=== PATIENT | male | born 1965 | race Hispanic/Latino ===

== ENCOUNTER 2021-04-04 18:38 | Inpatient (IN) | payer SELFPAY ==
[~2021-04-04 18:38] MED LIST: Heparin 1,000 UNITS/ML VIAL ONE; Succinylcholine 200 MG/10 ml SYRINGE FS ONE
[2021-04-04 19:09] LABS: Bilirubin Negative (Negative); Blood, Urine 1+ (Negative); Clarity Extra Turbid (Clear); Glucose, Urine (Dipstick) Greater than 1000 mg/dL (Negative); Ketone, Urine 60 mg/dL (Negative); Leukocyte 500 Leu/uL (Negative); Nitrite Negative (Negative); Protein, Urine (Dipstick) 100 mg/dL (Neg-Trace); Specific Gravity, Urine 1.022 (1.002-1.036); Squamous Epithelial None Seen HPF (0-3); Urobilinogen Normal mg/dL (Less than 2); WBC/HPF Greater than 50 HPF (0-3); pH, Urine 6.5 (5.0-9.0)
[2021-04-04 19:10] LABS: Bacteria/HPF 1+ HPF (None Seen)
[2021-04-04 19:12] LABS: Hemoglobin 12.5 g/dL (14.0-18.0); Mean Corpuscular HGB CONC 32.3 g/dL (32.0-36.0); Mean Corpuscular Hemoglobin 35.1 pg (27.0-31.0); Mean Platelet Volume 8.7 fL (7.4-10.4); Platelet Count 333 thou/uL (130-400); RBC Distribution Width 14.1 % (11.5-14.5); Red Blood Cell (RBC) Count 3.56 mill/uL (4.70-6.10); White Blood Cell (WBC) Count 11.7 thou/uL (4.8-10.8)
[2021-04-04 19:17] LABS: Amphetamine Not Detected (NotDetected); Barbiturates Screen Not Detected (NotDetected); Benzodiazepine Screen Not Detected (NotDetected); Cocaine Metabolite Screen Detected (NotDetected); Methadone Not Detected (NotDetected); Methamphetamine Not Detected (NotDetected); Opiate Screen Not Detected (NotDetected); Oxycodone Screen Not Detected (NotDetected); Phencyclidine (PCP) Not Detected (NotDetected); THC/Cannabinoid Screen Not Detected (NotDetected); Tricyclic Screen Not Detected (NotDetected)
[2021-04-04 19:24] LABS: Acetaminophen Less than 6.0 mcg/mL (10.0-30.0); Alcohol Less than 10 mg/dL (Less than 10); Salicylate Less than 8.0 mg/dL (15.0-30.0)
[2021-04-04 19:26] LABS: ALT (SGPT) 14 U/L (8-55); AST (SGOT) 15 U/L (5-34); Albumin 3.5 g/dL (3.4-4.8); Alkaline Phosphatase 155 U/L (40-110); BUN (Urea Nitrogen) 65 mg/dL (8.4-25.7); Bilirubin, Total 0.3 mg/dL (0.2-1.2); CK (CPK) 25 U/L (30-200); Calc. Creatinine Clearance 0 mL/min (70-130); Calcium 10.5 mg/dL (7.8-10.44); Chloride 109 mmol/L (98-107); Globulin 4.9 g/dL (2.4-3.5); Lipase 966 U/L (8-78); Potassium 3.1 mmol/L (3.5-5.1); Protein, Total 8.4 g/dL (5.8-8.1); Sodium 148 mmol/L (136-145)
[2021-04-04 19:30] LABS: Carbon Dioxide Less than 8 mmol/L (23-31); Glucose 1120 mg/dL (83-110)
[2021-04-04] MEDS ORDERED: Cefepime 2 GM VIAL ONE (19:39)
[2021-04-04] MEDS ORDERED: INSULIN REGULAR IN 0.9 % NACL 100 UNIT/100 ML BAG ONE (19:39)
[2021-04-04 19:40] LABS: Band 14 % (5-11); Lymphocytes 7 % (21-51); MDiff Complete? YES; Macrocytosis SLIGHT = 6-15 cells (100X) (0-5/hpf); Monocytes 10 % (0-10); Neutrophil 69 % (42-75); Platelet Morphology Comment Appears Adequate; Polychromasia SLIGHT = 2-3 cells (100X) (0-2/hpf)
[2021-04-04] MEDS ORDERED: Lorazepam 2 MG/ML VIAL ONE (19:48)
[2021-04-04 20:00] LABS: SARS-CoV-2 NAA Rapid Test Not Detected (NotDetected)
[2021-04-04] MEDS ORDERED: Potassium Chloride 20 MEQ/100 ML PREMIX BAG ONE ×2 (20:07→23:41)
[2021-04-04] MEDS ORDERED: Sodium Chloride 0.9% 1,000 ML IV PRN ×4 (20:54)
[2021-04-04] MEDS ORDERED: Dextrose 5 %-0.45 % NaCl 1,000 ML IV PRN (20:54)
[2021-04-04] MEDS ORDERED: NS 0.9% w/ 20 MEQ KCL 1,000 ML IV PRN ×2 (20:54)
[2021-04-04] MEDS ORDERED: D5 1/2 NS w/20 mEq KCL 1,000 ML IV PRN (20:54)
[2021-04-04] MEDS ORDERED: Electrolyte Replacement Protocol 1 EACH IVPB ONE (20:54)
[2021-04-04 21:20] LABS: Actual Bicarbonate (HCO3a) 5.5 mEq/L (22-28); Base Excess (BEa) -27.4 mEq/L (-2.0 to +3.0); CO2 Tension 33.7 mmHg (35.0-45.0); O2 Tension (PaO2), arterial 345.5 mmHg (> 70.0); pH, Arterial 6.83 (7.35-7.45)
[2021-04-04 21:21] LABS: ALV-art Gradient 325.375 mmHg (0-20); Analyzer IN Cardio ER; Calcium, Ionized (arterial) 1.24 mmol/L (1.12-1.30); Carboxyhemoglobin (COHb) 0.1 gm% (0.0-3.0); Hemoglobin (Hb) 9.8 g/dL (14.0-18.0); Potassium - ABG Lab 2.91 mmol/L (3.70-5.30); Puncture Site RRA
[2021-04-04] MEDS ORDERED: Norepinephrine 8 MG/0.9% NS 250 ML ONE (21:36)
[2021-04-04 21:49] LABS: BUN (Urea Nitrogen) 52 mg/dL (8.4-25.7); Calc. Creatinine Clearance 0 mL/min (70-130); Calcium 7.7 mg/dL (7.8-10.44); Carbon Dioxide Less than 8 mmol/L (23-31); Chloride 124 mmol/L (98-107); Sodium 151 mmol/L (136-145)
[2021-04-04 21:50] LABS: Lactic Acid 1.1 mmol/L (0.5-2.2)
[2021-04-04 22:00] LABS: Glucose 756 mg/dL (83-110)
[2021-04-04] MEDS ORDERED: Potassium Chloride 20 MEQ in Premix Bag 1 BAG IVPB SCH (22:00)
[2021-04-04] MEDS ORDERED: Sodium Bicarb 50 MEQ/50 ML Abboject 8.4% SYRINGE IVP SCH (22:15)
[2021-04-04] MEDS ORDERED: Sodium Bicarbonate 150 MEQ in Dextrose 5% in Water 1,000 ML IV SCH (22:30)
[2021-04-04] MEDS ORDERED: Sodium Bicarb 50 MEQ/50 ML Abboject 8.4% SYRINGE ONE (23:15)
[2021-04-04] MEDS ORDERED: metroNIDAZOLE 500 MG/100 ML BAG ONE (23:16)
[2021-04-04] MEDS: metroNIDAZOLE 500 MG in Premix Bag 1 BAG IVPB SCH (23:33)
[2021-04-04] MEDS: Potassium Chloride 20 MEQ in Premix Bag 1 BAG IVPB SCH (23:33)
[2021-04-05] MEDS ORDERED: VANCOMYCIN 1.25 GM/250 ML BAG 1.25 GM in Premix Bag 1 BAG IVPB SCH (00:30)
[2021-04-05] MEDS: Potassium Chloride 20 MEQ in Premix Bag 1 BAG IVPB SCH (01:15)
[2021-04-05 01:39] LABS: Magnesium 1.9 mg/dL (1.6-2.6)
[2021-04-05 01:46] LABS: BUN (Urea Nitrogen) 49 mg/dL (8.4-25.7); Calc. Creatinine Clearance 21 mL/min (70-130); Calcium 7.7 mg/dL (7.8-10.44); Chloride 125 mmol/L (98-107); Potassium 3.4 mmol/L (3.5-5.1); Sodium 155 mmol/L (136-145)
[2021-04-05 01:50] LABS: Carbon Dioxide Less than 8 mmol/L (23-31); Glucose 751 mg/dL (83-110)
[2021-04-05 01:51] LABS: Phosphorus 1.7 mg/dL (2.3-4.7)
[2021-04-05] MEDS: HUMULIN R 100 UNITS in Sodium Chloride 0.9% 100 ML IVPB SCH ×2 (02:46→13:17)
[2021-04-05] MEDS ORDERED: Fentanyl 100 MCG/2 ML VIAL ONE (02:49)
[2021-04-05] MEDS ORDERED: Lorazepam 2 MG/ML VIAL ONE (03:03)
[2021-04-05] MEDS: Lorazepam 2 MG/ML VIAL SLOW IVP PRN (03:05)
[2021-04-05] MEDS ORDERED: Morphine 2 MG/ML VIAL SLOW IVP PRN (03:15)
[2021-04-05] MEDS ORDERED: Fentanyl BOLUS 250 ML IVPB PRN (03:15)
[2021-04-05] MEDS ORDERED: Propofol BOLUS 1,000 MG/100 ML VIAL IV PRN (03:15)
[2021-04-05] MEDS ORDERED: DISCONTINUE PREVIOUS NARCOTIC PAIN MEDICATIONS AND BENZODIAZEPINES FS SCH (03:15)
[2021-04-05] MEDS ORDERED: NS 0.9% w/ 20 MEQ KCL 0 ML ONE (03:27)
[2021-04-05] MEDS: Fentanyl CADD 100 ML IV SCH ×2 (03:55→22:30)
[2021-04-05 03:58] LABS: CO2 Tension 20.4 mmHg (35.0-45.0); pH, Arterial 7.29 (7.35-7.45)
[2021-04-05 03:59] LABS: Actual Bicarbonate (HCO3a) 9.8 mEq/L (22-28); Base Excess (BEa) -14.8 mEq/L (-2.0 to +3.0); Hemoglobin (Hb) 10.7 g/dL (14.0-18.0); O2 Tension (PaO2), arterial 124.6 mmHg (> 70.0)
[2021-04-05 04:00] LABS: Carboxyhemoglobin (COHb) 0.1 gm% (0.0-3.0); Potassium - ABG Lab 2.55 mmol/L (3.70-5.30)
[2021-04-05 04:01] LABS: Analyzer IN Cardio ER; Calcium, Ionized (arterial) 1.21 mmol/L (1.12-1.30); Puncture Site RRA
[2021-04-05] MEDS: Sodium Chloride 0.45% 1,000 ML IV SCH ×2 (04:29→08:01)
[2021-04-05] MEDS ORDERED: Potassium Chloride 20 MEQ TAB PO SCH ×2 (04:30→08:00)
[2021-04-05] MEDS ORDERED: Potassium Chloride 20 MEQ/100 ML PREMIX BAG ONE ×2 (04:32→04:33)
[2021-04-05] MEDS ORDERED: Potassium Chloride 20 MEQ TAB ONE ×3 (04:32→04:42)
[2021-04-05 05:06] LABS: Anion Gap 23 mmol/L (10-20); BUN (Urea Nitrogen) 45 mg/dL (8.4-25.7); Calc. Creatinine Clearance 21 mL/min (70-130); Calcium 7.8 mg/dL (7.8-10.44); Carbon Dioxide 10 mmol/L (23-31); Chloride 125 mmol/L (98-107); Glucose 730 mg/dL (83-110); Magnesium 1.9 mg/dL (1.6-2.6); Phosphorus 1.1 mg/dL (2.3-4.7); Potassium 2.7 mmol/L (3.5-5.1); Sodium 155 mmol/L (136-145)
[2021-04-05] MEDS ORDERED: levETIRAcetam in NS 100 ML ONE (05:07)
[2021-04-05] MEDS: levETIRAcetam in NS 1,000 MG in Premix Bag 1 BAG IVPB SCH ×3 (05:14→17:45)
[2021-04-05] MEDS ORDERED: metroNIDAZOLE 500 MG in Premix Bag 1 BAG IVPB SCH (06:00)
[2021-04-05] MEDS ORDERED: Potassium Chloride 40 MEQ in Sodium Chloride 0.9% 250 ML 250 ML IVPB SCH (06:00)
[2021-04-05] MEDS ORDERED: Potassium Phosphate 30 MMOL in Sodium Chloride 0.9% 250 ML 250 ML IVPB SCH ×2 (06:30→14:30)
[2021-04-05 06:38] LABS: Anion Gap 22 mmol/L (10-20); BUN (Urea Nitrogen) 44 mg/dL (8.4-25.7); Calc. Creatinine Clearance 23 mL/min (70-130); Calcium 7.7 mg/dL (7.8-10.44); Carbon Dioxide 10 mmol/L (23-31); Sodium 157 mmol/L (136-145)
[2021-04-05 06:48] LABS: Chloride 128 mmol/L (98-107); Glucose 650 mg/dL (83-110)
[2021-04-05] MEDS: metroNIDAZOLE 500 MG in Premix Bag 1 BAG IVPB SCH ×3 (08:34→23:09)
[2021-04-05] MEDS: Enoxaparin Sodium 30 MG/0.3 ML SYRINGE SC SCH (09:00)
[2021-04-05 10:05] LABS: Anion Gap 16 mmol/L (10-20); BUN (Urea Nitrogen) 39 mg/dL (8.4-25.7); Calc. Creatinine Clearance 26 mL/min (70-130); Carbon Dioxide 15 mmol/L (23-31); Potassium 3.7 mmol/L (3.5-5.1); Sodium 154 mmol/L (136-145)
[2021-04-05 10:06] LABS: Calcium 7.6 mg/dL (7.8-10.44); Glucose 501 mg/dL (83-110)
[2021-04-05 10:20] LABS: Chloride 127 mmol/L (98-107)
[2021-04-05 11:31] LABS: Albumin 2.3 g/dL (3.4-4.8); Anion Gap 14 mmol/L (10-20); BUN (Urea Nitrogen) 36 mg/dL (8.4-25.7); BUN/Creatinine Ratio 16.74; Calc. Creatinine Clearance 26 mL/min (70-130); Calcium 7.8 mg/dL (7.8-10.44); Carbon Dioxide 16 mmol/L (23-31); Chloride 128 mmol/L (98-107); Glucose 461 mg/dL (83-110); Phosphorus Less than 1.0 mg/dL (2.3-4.7); Potassium 3.7 mmol/L (3.5-5.1); Sodium 154 mmol/L (136-145)
[2021-04-05] MEDS: Sodium Bicarbonate 50 MEQ in Dextrose 5% in Water 1,000 ML IV SCH ×3 (13:12→22:30)
[2021-04-05 13:22] LABS: Actual Bicarbonate (HCO3a) 14.1 mEq/L (22-28); Base Excess (BEa) -7.9 mEq/L (-2.0 to +3.0); Calcium, Ionized (arterial) 1.11 mmol/L (1.12-1.30); Carboxyhemoglobin (COHb) 0.3 gm% (0.0-3.0); O2 Tension (PaO2), arterial 110.7 mmHg (> 70.0); Potassium - ABG Lab 4.22 mmol/L (3.70-5.30); pH, Arterial 7.42 (7.35-7.45)
[2021-04-05 13:23] LABS: CO2 Tension 22.1 mmHg (35.0-45.0)
[2021-04-05 13:24] LABS: Puncture Site RBA
[2021-04-05 13:25] LABS: ALV-art Gradient -102.675 mmHg (0-20)
[2021-04-05] MEDS ORDERED: Pantoprazole 40 MG VIAL IVP SCH (13:30)
[2021-04-05] MEDS ORDERED: Sodium Chloride 0.9% (PF) 10 ML VIAL FS PRN (13:30)
[2021-04-05 16:28] LABS: Albumin 2.3 g/dL (3.4-4.8); Anion Gap 13 mmol/L (10-20); BUN (Urea Nitrogen) 32 mg/dL (8.4-25.7); BUN/Creatinine Ratio 19.16; Calc. Creatinine Clearance 34 mL/min (70-130); Calcium 7.6 mg/dL (7.8-10.44); Carbon Dioxide 19 mmol/L (23-31); Chloride 128 mmol/L (98-107); Glucose 374 mg/dL (83-110); Phosphorus 2.1 mg/dL (2.3-4.7); Sodium 156 mmol/L (136-145)
[2021-04-05] MEDS: Albumin 25% 25 GM/100 ML BOT IVPB SCH ×2 (17:04→18:22)
[2021-04-05 19:40] LABS: Anion Gap 13 mmol/L (10-20); BUN (Urea Nitrogen) 28 mg/dL (8.4-25.7); BUN/Creatinine Ratio 17.18; Calc. Creatinine Clearance 35 mL/min (70-130); Calcium 7.7 mg/dL (7.8-10.44); Carbon Dioxide 20 mmol/L (23-31); Glucose 288 mg/dL (83-110); Sodium 156 mmol/L (136-145)
[2021-04-05 19:59] LABS: Chloride 127 mmol/L (98-107); Phosphorus 1.9 mg/dL (2.3-4.7)
[2021-04-05] MEDS ORDERED: Fentanyl CADD 100 ML ONE (21:18)
[2021-04-05] MEDS: Acetaminophen 650 MG/20.3 ML UDCUP PO PRN (21:47)
[2021-04-05 23:13] LABS: Albumin 2.8 g/dL (3.4-4.8); Anion Gap 15 mmol/L (10-20); BUN (Urea Nitrogen) 23 mg/dL (8.4-25.7); BUN/Creatinine Ratio 16.43; Calc. Creatinine Clearance 41 mL/min (70-130); Calcium 7.3 mg/dL (7.8-10.44); Carbon Dioxide 21 mmol/L (23-31); Chloride 122 mmol/L (98-107); Glucose 314 mg/dL (83-110); Phosphorus 2.4 mg/dL (2.3-4.7); Potassium 3.8 mmol/L (3.5-5.1); Sodium 154 mmol/L (136-145)
[2021-04-05 23:14] LABS: Vancomycin, Random 10.8 ug/mL (See Comment)
[2021-04-05] MEDS: Vancomycin 1 GM in Premix Bag 1 BAG IVPB SCH (23:47)
[2021-04-05] MEDS ORDERED: Vancomycin HCl 1 GM in Sodium Chloride 0.9% 250 ML 0 ML IVPB SCH (23:59)
[2021-04-06] MEDS: Sodium Bicarbonate 50 MEQ in Dextrose 5% in Water 1,000 ML IV SCH ×2 (02:54→07:01)
[2021-04-06] MEDS: HUMULIN R 100 UNITS in Sodium Chloride 0.9% 100 ML IVPB SCH ×2 (02:54→17:54)
[2021-04-06] MEDS: Norepinephrine 8 MG/0.9% NS 250 ML IVPB SCH ×2 (02:55→17:53)
[2021-04-06] MEDS: levETIRAcetam in NS 1,000 MG in Premix Bag 1 BAG IVPB SCH ×3 (03:02→17:13)
[2021-04-06] MEDS: Cefepime 1 GM in Sodium Chloride 0.9% 100 ML IVPB SCH ×2 (03:30→14:58)
[2021-04-06 03:35] LABS: Hemoglobin 9.4 g/dL (14.0-18.0); Mean Corpuscular HGB CONC 34.2 g/dL (32.0-36.0); Mean Corpuscular Hemoglobin 33.3 pg (27.0-31.0); Mean Corpuscular Volume 97.4 fL (78.0-98.0); Mean Platelet Volume 7.4 fL (7.4-10.4); Platelet Count 211 thou/uL (130-400); Red Blood Cell (RBC) Count 2.82 mill/uL (4.70-6.10); White Blood Cell (WBC) Count 9.1 thou/uL (4.8-10.8)
[2021-04-06 03:49] LABS: Band 27 % (5-11); Hypochromia SLIGHT = 6-15 cells (100X) (0-5/hpf); Lymphocytes 8 % (21-51); MDiff Complete? YES; Monocytes 14 % (0-10); Neutrophil 51 % (42-75); Platelet Morphology Comment Appears Adequate
[2021-04-06 03:51] LABS: Anion Gap 15 mmol/L (10-20); BUN (Urea Nitrogen) 18 mg/dL (8.4-25.7); Calc. Creatinine Clearance 54 mL/min (70-130); Carbon Dioxide 22 mmol/L (23-31); Chloride 120 mmol/L (98-107); Glucose 302 mg/dL (83-110); Potassium 3.2 mmol/L (3.5-5.1); Sodium 154 mmol/L (136-145)
[2021-04-06] MEDS ORDERED: Potassium Phosphate 30 MMOL in Sodium Chloride 0.9% 250 ML 250 ML IVPB SCH (06:45)
[2021-04-06 07:40] LABS: Actual Bicarbonate (HCO3a) 22.1 mEq/L (22-28); Base Excess (BEa) -1.2 mEq/L (-2.0 to +3.0); CO2 Tension 32.2 mmHg (35.0-45.0); Calcium, Ionized (arterial) 0.97 mmol/L (1.12-1.30); Carboxyhemoglobin (COHb) 0.2 gm% (0.0-3.0); Hemoglobin (Hb) 11.5 g/dL (14.0-18.0); O2 Tension (PaO2), arterial 84.9 mmHg (> 70.0); Potassium - ABG Lab 3.34 mmol/L (3.70-5.30); pH, Arterial 7.45 (7.35-7.45)
[2021-04-06 07:48] LABS: Puncture Site RRA
[2021-04-06] MEDS: metroNIDAZOLE 500 MG in Premix Bag 1 BAG IVPB SCH ×2 (08:42→16:58)
[2021-04-06] MEDS: Enoxaparin Sodium 30 MG/0.3 ML SYRINGE SC SCH (08:43)
[2021-04-06] MEDS: Pantoprazole 40 MG VIAL IVP SCH (08:43)
[2021-04-06] MEDS: Dextrose 5% in Water 1,000 ML IV SCH ×2 (09:00→21:38)
[2021-04-06 11:16] LABS: Phosphorus 2.1 mg/dL (2.3-4.7)
[2021-04-06 11:18] LABS: Magnesium 1.2 mg/dL (1.6-2.6)
[2021-04-06] MEDS: Acetaminophen 650 MG/20.3 ML UDCUP PO PRN ×2 (12:25→21:38)
[2021-04-06 13:05] LABS: Albumin 2.6 g/dL (3.4-4.8); Anion Gap 13 mmol/L (10-20); BUN (Urea Nitrogen) 12 mg/dL (8.4-25.7); BUN/Creatinine Ratio 14.12; Calc. Creatinine Clearance 70 mL/min (70-130); Carbon Dioxide 27 mmol/L (23-31); Chloride 115 mmol/L (98-107); Glucose 252 mg/dL (83-110); Phosphorus 3.3 mg/dL (2.3-4.7); Potassium 3.4 mmol/L (3.5-5.1); Sodium 152 mmol/L (136-145)
[2021-04-06] MEDS ORDERED: Fentanyl CADD 100 ML ONE (19:48)
[2021-04-06] MEDS: Fentanyl CADD 100 ML IV SCH (19:57)
[2021-04-06 21:30] LABS: Albumin 2.7 g/dL (3.4-4.8); Anion Gap 13 mmol/L (10-20); BUN (Urea Nitrogen) 10 mg/dL (8.4-25.7); BUN/Creatinine Ratio 13.16; Calc. Creatinine Clearance 78 mL/min (70-130); Calcium 6.9 mg/dL (7.8-10.44); Carbon Dioxide 27 mmol/L (23-31); Chloride 110 mmol/L (98-107); Glucose 238 mg/dL (83-110); Phosphorus 3.1 mg/dL (2.3-4.7); Potassium 3.5 mmol/L (3.5-5.1); Sodium 146 mmol/L (136-145)
[2021-04-06] MEDS: Propofol 1,000 MG/100 ML VIAL IV PRN (21:39)
[2021-04-06] MEDS: Vancomycin 1 GM in Premix Bag 1 BAG IVPB SCH (23:40)
[2021-04-07] MEDS: Cefepime 1 GM in Sodium Chloride 0.9% 100 ML IVPB SCH ×2 (03:55→14:32)
[2021-04-07] MEDS: levETIRAcetam in NS 1,000 MG in Premix Bag 1 BAG IVPB SCH ×2 (05:10→16:41)
[2021-04-07 05:11] LABS: Anion Gap 14 mmol/L (10-20); BUN (Urea Nitrogen) 10 mg/dL (8.4-25.7); Calc. Creatinine Clearance 79 mL/min (70-130); Calcium 6.2 mg/dL (7.8-10.44); Carbon Dioxide 26 mmol/L (23-31); Chloride 111 mmol/L (98-107); Glucose 155 mg/dL (83-110); Sodium 148 mmol/L (136-145)
[2021-04-07 05:12] LABS: Albumin 2.5 g/dL (3.4-4.8); Phosphorus 2.7 mg/dL (2.3-4.7)
[2021-04-07 05:21] LABS: Magnesium 0.9 mg/dL (1.6-2.6); Potassium 2.9 mmol/L (3.5-5.1)
[2021-04-07 05:24] LABS: Band 14 % (5-11); Eosinophils 1 % (0-10); Hemoglobin 10.5 g/dL (14.0-18.0); Lymphocytes 17 % (21-51); MDiff Complete? YES; Macrocytosis SLIGHT = 6-15 cells (100X) (0-5/hpf); Mean Corpuscular HGB CONC 33.9 g/dL (32.0-36.0); Mean Corpuscular Hemoglobin 33.9 pg (27.0-31.0); Mean Platelet Volume 7.2 fL (7.4-10.4); Monocytes 2 % (0-10); Neutrophil 66 % (42-75); Platelet Count 151 thou/uL (130-400); Platelet Morphology Comment Appears Adequate; RBC Distribution Width 14.4 % (11.5-14.5); White Blood Cell (WBC) Count 9.3 thou/uL (4.8-10.8)
[2021-04-07] MEDS ORDERED: Electrolyte Replacement Protocol 1 EACH FS SCH (05:30)
[2021-04-07] MEDS: Potassium Chloride 40 MEQ in Sodium Chloride 0.9% 250 ML 250 ML IVPB SCH ×2 (05:54→10:00)
[2021-04-07] MEDS ORDERED: Magnesium Sulfate 4 GM in Sodium Chloride 0.9% 250 ML 250 ML IVPB SCH (06:00)
[2021-04-07] MEDS ORDERED: Calcium Gluconate 9.2 MEQ in Sodium Chloride 0.9% 250 ML 200 ML IVPB SCH (06:09)
[2021-04-07] MEDS ORDERED: Potassium Phosphate 30 MMOL in Sodium Chloride 0.9% 250 ML 250 ML IVPB SCH (06:15)
[2021-04-07] MEDS: Dextrose 5% in Water 1,000 ML IV SCH (07:11)
[2021-04-07 07:47] LABS: Actual Bicarbonate (HCO3a) 25.8 mEq/L (22-28); Base Excess (BEa) 0.1 mEq/L (-2.0 to +3.0); CO2 Tension 46.8 mmHg (35.0-45.0); Calcium, Ionized (arterial) 0.93 mmol/L (1.12-1.30); Carboxyhemoglobin (COHb) 0.3 gm% (0.0-3.0); Hemoglobin (Hb) 10.1 g/dL (14.0-18.0); Potassium - ABG Lab 3.13 mmol/L (3.70-5.30); pH, Arterial 7.36 (7.35-7.45)
[2021-04-07 07:57] LABS: O2 Tension (PaO2), arterial 59.3 mmHg (> 70.0); Puncture Site LRA
[2021-04-07] MEDS ORDERED: Fentanyl CADD 100 ML ONE ×2 (08:44→21:22)
[2021-04-07] MEDS: Fentanyl CADD 100 ML IV SCH ×2 (08:46→21:32)
[2021-04-07] MEDS: Enoxaparin Sodium 30 MG/0.3 ML SYRINGE SC SCH (09:52)
[2021-04-07] MEDS: Pantoprazole 40 MG VIAL IVP SCH (10:00)
[2021-04-07] MEDS ORDERED: Dextrose 5% in Water 1,000 ML IV PRN (12:26)
[2021-04-07] MEDS ORDERED: Dextrose 50% Abboject 50 ML SYRINGE SLOW IVP PRN (12:26)
[2021-04-07] MEDS: Insulin Regular 300 UNITS/3 ML VIAL SC PRN ×3 (12:49→20:25)
[2021-04-07] MEDS: Acetaminophen 650 MG/20.3 ML UDCUP PO PRN (13:03)
[2021-04-07] MEDS: Norepinephrine 8 MG/0.9% NS 250 ML IVPB SCH (14:01)
[2021-04-07 16:30] LABS: Albumin 2.2 g/dL (3.4-4.8); Anion Gap 13 mmol/L (10-20); BUN (Urea Nitrogen) 7 mg/dL (8.4-25.7); BUN/Creatinine Ratio 9.59; Calc. Creatinine Clearance 75 mL/min (70-130); Calcium 6.9 mg/dL (7.8-10.44); Carbon Dioxide 26 mmol/L (23-31); Chloride 115 mmol/L (98-107); Glucose 275 mg/dL (83-110); Phosphorus 4.1 mg/dL (2.3-4.7); Potassium 4.5 mmol/L (3.5-5.1); Sodium 149 mmol/L (136-145)
[2021-04-07 17:12] LABS: Magnesium 1.7 mg/dL (1.6-2.6)
[2021-04-07] MEDS ORDERED: Magnesium 2 GM/50 ML 2 GM in Premix Bag 1 BAG IVPB SCH (22:00)
[2021-04-07 22:39] LABS: Albumin 2.1 g/dL (3.4-4.8); Anion Gap 11 mmol/L (10-20); BUN (Urea Nitrogen) 6 mg/dL (8.4-25.7); BUN/Creatinine Ratio 8.57; Calc. Creatinine Clearance 78 mL/min (70-130); Calcium 6.9 mg/dL (7.8-10.44); Carbon Dioxide 27 mmol/L (23-31); Chloride 114 mmol/L (98-107); Glucose 225 mg/dL (83-110); Phosphorus 2.7 mg/dL (2.3-4.7); Potassium 3.7 mmol/L (3.5-5.1); Sodium 148 mmol/L (136-145)
[2021-04-07 22:55] LABS: Vancomycin, Trough 8.2 ug/mL
[2021-04-08] MEDS ORDERED: Lorazepam 1 MG TAB PO PRN
[2021-04-08] MEDS: Vancomycin 1 GM in Premix Bag 1 BAG IVPB SCH (00:22)
[2021-04-08] MEDS: Acetaminophen 650 MG/20.3 ML UDCUP PO PRN ×2 (00:23→06:30)
[2021-04-08] MEDS: Insulin Regular 300 UNITS/3 ML VIAL SC PRN ×6 (00:26→20:39)
[2021-04-08] MEDS: Propofol 1,000 MG/100 ML VIAL IV PRN (03:25)
[2021-04-08 04:24] LABS: Magnesium 1.9 mg/dL (1.6-2.6); Phosphorus 2.2 mg/dL (2.3-4.7)
[2021-04-08] MEDS: levETIRAcetam in NS 1,000 MG in Premix Bag 1 BAG IVPB SCH ×2 (04:27→16:24)
[2021-04-08] MEDS: Cefepime 1 GM in Sodium Chloride 0.9% 100 ML IVPB SCH (04:27)
[2021-04-08 04:30] LABS: ALT (SGPT) 13 U/L (8-55); AST (SGOT) 22 U/L (5-34); Albumin 1.9 g/dL (3.4-4.8); Alkaline Phosphatase 108 U/L (40-110); Anion Gap 12 mmol/L (10-20); BUN (Urea Nitrogen) 5 mg/dL (8.4-25.7); Bilirubin, Total 0.8 mg/dL (0.2-1.2); Calc. Creatinine Clearance 79 mL/min (70-130); Calcium 6.4 mg/dL (7.8-10.44); Carbon Dioxide 25 mmol/L (23-31); Chloride 111 mmol/L (98-107); Globulin 2.7 g/dL (2.4-3.5); Glucose 249 mg/dL (83-110); Lipase 49 U/L (8-78); Potassium 3.6 mmol/L (3.5-5.1); Protein, Total 4.6 g/dL (5.8-8.1); Sodium 144 mmol/L (136-145)
[2021-04-08 04:36] LABS: Band 9 % (5-11); Eosinophils 1 % (0-10); Hypochromia SLIGHT = 6-15 cells (100X) (0-5/hpf); Lymphocytes 19 % (21-51); MDiff Complete? YES; Mean Corpuscular HGB CONC 34.4 g/dL (32.0-36.0); Mean Corpuscular Hemoglobin 34.3 pg (27.0-31.0); Mean Corpuscular Volume 99.8 fL (78.0-98.0); Mean Platelet Volume 8.3 fL (7.4-10.4); Monocytes 15 % (0-10); Neutrophil 56 % (42-75); Platelet Count 84 thou/uL (130-400); Platelet Morphology Comment Appears Decreased; RBC Distribution Width 14.3 % (11.5-14.5); Red Blood Cell (RBC) Count 2.63 mill/uL (4.70-6.10); White Blood Cell (WBC) Count 5.5 thou/uL (4.8-10.8)
[2021-04-08] MEDS: Albumin 25% 25 GM/100 ML BOT IVPB SCH ×3 (06:30→18:12)
[2021-04-08] MEDS ORDERED: Magnesium 2 GM/50 ML 2 GM in Premix Bag 1 BAG IVPB SCH (06:30)
[2021-04-08 07:34] LABS: Actual Bicarbonate (HCO3a) 25.7 mEq/L (22-28); Base Excess (BEa) 1.2 mEq/L (-2.0 to +3.0); Calcium, Ionized (arterial) 0.94 mmol/L (1.12-1.30); Carboxyhemoglobin (COHb) 0.3 gm% (0.0-3.0); Hemoglobin (Hb) 9.9 g/dL (14.0-18.0); O2 Tension (PaO2), arterial 95.7 mmHg (> 70.0); pH, Arterial 7.43 (7.35-7.45)
[2021-04-08 08:23] LABS: Puncture Site RBA
[2021-04-08] MEDS: Enoxaparin Sodium 30 MG/0.3 ML SYRINGE SC SCH (09:25)
[2021-04-08] MEDS: Pantoprazole 40 MG VIAL IVP SCH (09:26)
[2021-04-08] MEDS ORDERED: Calcium Gluc 4.6 MEQ/10 ML (100 MG/ML) SLOW IVP ONE (10:30)
[2021-04-08] MEDS ORDERED: Calcium Gluconate 4.6 MEQ in Sodium Chloride 0.9% 100 ML IVPB SCH (10:45)
[2021-04-08] MEDS: Vancomycin HCl 750 MG in Sodium Chloride 0.9% 250 ML 250 ML IVPB SCH (11:17)
[2021-04-08] MEDS ORDERED: Fentanyl CADD 100 ML ONE (11:44)
[2021-04-08] MEDS: Fentanyl CADD 100 ML IV SCH (11:50)
[2021-04-08 13:23] LABS: #Eosinphils 0.1 thou/uL (0.0-0.7); #Lymphocytes 0.5 thou/uL (1.20-3.40); #Monocytes 0.4 thou/uL (0.11-0.59); #Neutrophils 2.9 thou/uL (1.40-6.50); %Basophils 0.2 % (0.0-1.0); %Eosinophils 2.4 % (0.0-10.0); %Lymphocytes 12.6 % (21.0-51.0); %Monocytes 10.3 % (0.0-10.0); %Neutrophils 74.5 % (42.0-75.0); Mean Corpuscular HGB CONC 34.4 g/dL (32.0-36.0); Mean Corpuscular Hemoglobin 34.2 pg (27.0-31.0); Mean Corpuscular Volume 99.3 fL (78.0-98.0); Mean Platelet Volume 8.7 fL (7.4-10.4); Platelet Count 71 thou/uL (130-400); RBC Distribution Width 14.1 % (11.5-14.5); Red Blood Cell (RBC) Count 2.35 mill/uL (4.70-6.10); White Blood Cell (WBC) Count 3.8 thou/uL (4.8-10.8)
[2021-04-08] MEDS ORDERED: Electrolyte Replacement Protocol 1 EACH FS PRN (14:15)
[2021-04-08] MEDS ORDERED: Lorazepam 2 MG/ML VIAL IM PRN (14:15)
[2021-04-08] MEDS ORDERED: Ondansetron ODT 4 MG TAB PO PRN (14:15)
[2021-04-08] MEDS ORDERED: Morphine 4 MG/ML VIAL SLOW IVP PRN (14:30)
[2021-04-08] MEDS: Lorazepam 1 MG TAB PO SCH ×2 (14:38→18:11)
[2021-04-08] MEDS: Thiamine HCl 200 MG/2 ML VIAL SLOW IVP SCH (16:17)
[2021-04-08] MEDS: Lantus 1000 UNITS/10 ML VIAL SC SCH (20:39)
[2021-04-08] MEDS: Lorazepam 2 MG/ML VIAL SLOW IVP PRN (20:40)
[2021-04-09] MEDS: Vancomycin HCl 750 MG in Sodium Chloride 0.9% 250 ML 250 ML IVPB SCH ×2 (00:10→11:38)
[2021-04-09] MEDS: Lorazepam 1 MG TAB PO SCH ×5 (00:11→22:47)
[2021-04-09] MEDS: Albumin 25% 25 GM/100 ML BOT IVPB SCH ×2 (00:11→05:10)
[2021-04-09] MEDS: Insulin Regular 300 UNITS/3 ML VIAL SC PRN ×4 (00:14→19:17)
[2021-04-09 03:58] LABS: Fibrinogen 534 mg/dL (253-463); INR-International Normal Ratio 1.5; Prothrombin Time 18.3 sec (12.0-14.7)
[2021-04-09 03:59] LABS: PTT 50.9 sec (22.9-36.1)
[2021-04-09 04:01] LABS: D-Dimer Test 0.99 *mcg/mL (0.27-0.43)
[2021-04-09 04:02] LABS: FSP-Qualitative Normal (Normal)
[2021-04-09 04:20] LABS: Potassium 2.8 mmol/L (3.5-5.1)
[2021-04-09 04:22] LABS: ALT (SGPT) 9 U/L (8-55); AST (SGOT) 17 U/L (5-34); Albumin 2.9 g/dL (3.4-4.8); Alkaline Phosphatase 112 U/L (40-110); Anion Gap 10 mmol/L (10-20); BUN (Urea Nitrogen) Less than 4 mg/dL (8.4-25.7); Bilirubin, Total 1.6 mg/dL (0.2-1.2); Calc. Creatinine Clearance 98 mL/min (70-130); Calcium 6.9 mg/dL (7.8-10.44); Carbon Dioxide 26 mmol/L (23-31); Chloride 109 mmol/L (98-107); Globulin 2.2 g/dL (2.4-3.5); Glucose 181 mg/dL (83-110); Magnesium 1.7 mg/dL (1.6-2.6); Phosphorus 1.5 mg/dL (2.3-4.7); Protein, Total 5.1 g/dL (5.8-8.1); Sodium 142 mmol/L (136-145)
[2021-04-09 04:24] LABS: Hemoglobin 8.6 g/dL (14.0-18.0); Mean Corpuscular HGB CONC 34.6 g/dL (32.0-36.0); Mean Corpuscular Hemoglobin 34.4 pg (27.0-31.0); Mean Corpuscular Volume 99.4 fL (78.0-98.0); Platelet Count 54 thou/uL (130-400); RBC Distribution Width 13.9 % (11.5-14.5); Red Blood Cell (RBC) Count 2.49 mill/uL (4.70-6.10); White Blood Cell (WBC) Count 3.3 thou/uL (4.8-10.8)
[2021-04-09 04:26] LABS: Platelet Count 54 thou/uL (130-400)
[2021-04-09] MEDS ORDERED: Potassium Phosphate 22 MMOL in Sodium Chloride 0.9% 250 ML 250 ML IVPB SCH (04:30)
[2021-04-09] MEDS: levETIRAcetam in NS 1,000 MG in Premix Bag 1 BAG IVPB SCH ×2 (04:51→16:21)
[2021-04-09 04:54] LABS: Band 15 % (5-11); Eosinophils 1 % (0-10); Lymphocytes 16 % (21-51); MDiff Complete? YES; Macrocytosis SLIGHT = 6-15 cells (100X) (0-5/hpf); Metamyelocyte 1 % (0-0); Monocytes 9 % (0-10); Neutrophil 55 % (42-75); Platelet Morphology Comment Appears Decreased; Reactive Lymphocytes 3 % (0-10)
[2021-04-09] MEDS: Norepinephrine 8 MG/0.9% NS 250 ML IVPB SCH (05:11)
[2021-04-09] MEDS ORDERED: Magnesium 2 GM/50 ML 2 GM in Premix Bag 1 BAG IVPB SCH ×2 (06:30→16:45)
[2021-04-09] MEDS ORDERED: Potassium Chloride 40 MEQ in Premix Bag 1 BAG IVPB SCH (08:30)
[2021-04-09 08:44] LABS: Actual Bicarbonate (HCO3a) 22.8 mEq/L (22-28); Base Excess (BEa) -1.5 mEq/L (-2.0 to +3.0); CO2 Tension 36.3 mmHg (35.0-45.0); Calcium, Ionized (arterial) 0.95 mmol/L (1.12-1.30); Carboxyhemoglobin (COHb) 0.3 gm% (0.0-3.0); Hemoglobin (Hb) 7.9 g/dL (14.0-18.0); O2 Tension (PaO2), arterial 377.2 mmHg (> 70.0); Potassium - ABG Lab 3.49 mmol/L (3.70-5.30); pH, Arterial 7.42 (7.35-7.45)
[2021-04-09] MEDS: Multivit, Therapeutic 1 TAB PO SCH (08:44)
[2021-04-09] MEDS: Folic Acid 1 MG TAB PO SCH (08:44)
[2021-04-09] MEDS: Pantoprazole 40 MG VIAL IVP SCH (08:44)
[2021-04-09] MEDS: Calcium Carbonate 600 MG TAB PO SCH ×2 (08:44→21:37)
[2021-04-09 08:45] LABS: Puncture Site LRA
[2021-04-09 08:46] LABS: ALV-art Gradient -137.375 mmHg (0-20)
[2021-04-09] MEDS ORDERED: Ergocalciferol 1.25 MG(50,000 UNITS) CAP PO SCH (09:00)
[2021-04-09] MEDS ORDERED: Calcium Gluconate 100 MG/ML 10 ML IVPB SCH (09:30)
[2021-04-09] MEDS: Cholecalciferol 1,000 UNITS (25 MCG) TAB PO SCH (09:59)
[2021-04-09] MEDS: Lantus 1000 UNITS/10 ML VIAL SC SCH ×2 (10:14→22:05)
[2021-04-09] MEDS ORDERED: Calcium Gluconate 9.2 MEQ in Sodium Chloride 0.9% 100 ML IVPB SCH (10:15)
[2021-04-09 10:54] LABS: Vancomycin, Trough 13.9 ug/mL
[2021-04-09] MEDS ORDERED: Vancomycin 1 GM in Premix Bag 1 BAG IVPB SCH ×2 (11:15→23:00)
[2021-04-09] MEDS ORDERED: Lorazepam 1 MG TAB PO PRN (14:15)
[2021-04-09] MEDS: Thiamine HCl 200 MG/2 ML VIAL SLOW IVP SCH (14:31)
[2021-04-09] MEDS: Oxacillin 1 GM in Sodium Chloride 0.9% 100 ML IVPB SCH ×3 (14:32→22:09)
[2021-04-09 15:00] LABS: Platelet Count 63 thou/uL (130-400)
[2021-04-09 15:18] LABS: Magnesium 1.7 mg/dL (1.6-2.6); Potassium 3.6 mmol/L (3.5-5.1)
[2021-04-09 15:19] LABS: Phosphorus 2.8 mg/dL (2.3-4.7)
[2021-04-09] MEDS ORDERED: Spironolactone 25 MG TAB PER TUBE SCH (18:00)
[2021-04-09] MEDS ORDERED: Torsemide 10 MG TAB PER TUBE SCH (18:00)
[2021-04-09] MEDS: Potassium Chloride 20 MEQ in Premix Bag 1 BAG IVPB SCH ×2 (18:41→19:09)
[2021-04-10] MEDS: Oxacillin 1 GM in Sodium Chloride 0.9% 100 ML IVPB SCH ×6 (01:31→22:09)
[2021-04-10] MEDS: levETIRAcetam in NS 1,000 MG in Premix Bag 1 BAG IVPB SCH ×2 (03:51→14:26)
[2021-04-10 04:42] LABS: Hemoglobin A1c 11.5 % (4.0-6.0)
[2021-04-10 04:57] LABS: Band 19 % (5-11); Hemoglobin 9.3 g/dL (14.0-18.0); Hypochromia SLIGHT = 6-15 cells (100X) (0-5/hpf); Lymphocytes 9 % (21-51); MDiff Complete? YES; Macrocytosis SLIGHT = 6-15 cells (100X) (0-5/hpf); Mean Corpuscular Hemoglobin 34.1 pg (27.0-31.0); Mean Platelet Volume 9.8 fL (7.4-10.4); Monocytes 9 % (0-10); Neutrophil 62 % (42-75); Platelet Count 84 thou/uL (130-400); Platelet Morphology Comment Appears Decreased; RBC Distribution Width 13.9 % (11.5-14.5); Reactive Lymphocytes 1 % (0-10); Red Blood Cell (RBC) Count 2.74 mill/uL (4.70-6.10)
[2021-04-10 04:58] LABS: ALT (SGPT) 10 U/L (8-55); AST (SGOT) 30 U/L (5-34); Albumin 2.9 g/dL (3.4-4.8); Alkaline Phosphatase 200 U/L (40-110); Anion Gap 18 mmol/L (10-20); BUN (Urea Nitrogen) Less than 4 mg/dL (8.4-25.7); Bilirubin, Total 1.8 mg/dL (0.2-1.2); Calc. Creatinine Clearance 102 mL/min (70-130); Calcium 7.6 mg/dL (7.8-10.44); Carbon Dioxide 24 mmol/L (23-31); Chloride 110 mmol/L (98-107); Globulin 2.6 g/dL (2.4-3.5); Glucose 160 mg/dL (83-110); Magnesium 1.7 mg/dL (1.6-2.6); Phosphorus 2.9 mg/dL (2.3-4.7); Potassium 4.2 mmol/L (3.5-5.1); Protein, Total 5.5 g/dL (5.8-8.1); Sodium 148 mmol/L (136-145)
[2021-04-10] MEDS ORDERED: Magnesium 2 GM/50 ML 2 GM in Premix Bag 1 BAG IVPB SCH ×2 (05:15→05:30)
[2021-04-10] MEDS: Calcium Carbonate 600 MG TAB PO SCH ×2 (07:48→22:09)
[2021-04-10] MEDS: Cholecalciferol 1,000 UNITS (25 MCG) TAB PO SCH (07:48)
[2021-04-10] MEDS: Folic Acid 1 MG TAB PO SCH (07:48)
[2021-04-10] MEDS: Lorazepam 0.5 MG TAB PO SCH ×4 (07:48→22:10)
[2021-04-10] MEDS: Lantus 1000 UNITS/10 ML VIAL SC SCH ×2 (07:49→22:10)
[2021-04-10] MEDS: Multivit, Therapeutic 1 TAB PO SCH (07:49)
[2021-04-10] MEDS: Pantoprazole 40 MG VIAL IVP SCH (07:52)
[2021-04-10] MEDS: Insulin Regular 300 UNITS/3 ML VIAL SC PRN ×2 (11:32→20:00)
[2021-04-10] MEDS ORDERED: Lorazepam 1 MG TAB PO PRN (14:15)
[2021-04-10] MEDS: Thiamine HCl 200 MG/2 ML VIAL SLOW IVP SCH (14:26)
[2021-04-10] MEDS ORDERED: Dextrose 5 % And 0.9 % NaCl 1,000 ML IV SCH (15:15)
[2021-04-10 16:16] LABS: Albumin 2.7 g/dL (3.4-4.8); Anion Gap 19 mmol/L (10-20); BUN (Urea Nitrogen) 6 mg/dL (8.4-25.7); BUN/Creatinine Ratio 8.57; Calc. Creatinine Clearance 83 mL/min (70-130); Carbon Dioxide 22 mmol/L (23-31); Chloride 112 mmol/L (98-107); Glucose 158 mg/dL (83-110); Phosphorus 3.1 mg/dL (2.3-4.7); Potassium 3.6 mmol/L (3.5-5.1); Sodium 149 mmol/L (136-145)
[2021-04-10] MEDS: Dextrose 5% in Water 1,000 ML IV SCH (16:29)
[2021-04-10] MEDS ORDERED: Lactated Ringer's 500 ML IV SCH (18:00)
[2021-04-11] MEDS: Insulin Regular 300 UNITS/3 ML VIAL SC PRN ×2 (00:20→17:26)
[2021-04-11] MEDS: Oxacillin 1 GM in Sodium Chloride 0.9% 100 ML IVPB SCH ×6 (01:35→21:44)
[2021-04-11] MEDS: levETIRAcetam in NS 1,000 MG in Premix Bag 1 BAG IVPB SCH ×2 (03:12→15:13)
[2021-04-11 04:30] LABS: Anion Gap 12 mmol/L (10-20); BUN (Urea Nitrogen) 8 mg/dL (8.4-25.7); Calc. Creatinine Clearance 86 mL/min (70-130); Calcium 7.4 mg/dL (7.8-10.44); Carbon Dioxide 25 mmol/L (23-31); Chloride 113 mmol/L (98-107); Glucose 152 mg/dL (83-110); Magnesium 1.8 mg/dL (1.6-2.6); Potassium 3.4 mmol/L (3.5-5.1); Sodium 147 mmol/L (136-145)
[2021-04-11 04:58] LABS: Hemoglobin 8.5 g/dL (14.0-18.0); Mean Corpuscular HGB CONC 33.6 g/dL (32.0-36.0); Mean Corpuscular Hemoglobin 33.4 pg (27.0-31.0); Mean Corpuscular Volume 99.5 fL (78.0-98.0); Mean Platelet Volume 9.1 fL (7.4-10.4); Platelet Count 133 thou/uL (130-400); RBC Distribution Width 13.9 % (11.5-14.5); Red Blood Cell (RBC) Count 2.54 mill/uL (4.70-6.10); White Blood Cell (WBC) Count 4.5 thou/uL (4.8-10.8)
[2021-04-11] MEDS ORDERED: Magnesium 2 GM/50 ML 2 GM in Premix Bag 1 BAG IVPB SCH (05:00)
[2021-04-11] MEDS: Potassium Chloride 20 MEQ in Premix Bag 1 BAG IVPB SCH (05:23)
[2021-04-11 05:24] LABS: Band 22 % (5-11); Eosinophils 2 % (0-10); Lymphocytes 17 % (21-51); MDiff Complete? YES; Monocytes 16 % (0-10); Neutrophil 43 % (42-75)
[2021-04-11] MEDS ORDERED: Lorazepam 0.5 MG TAB PO PRN (06:00)
[2021-04-11] MEDS ORDERED: Potassium Chloride 20 MEQ TAB PO SCH (08:00)
[2021-04-11] MEDS: Folic Acid 1 MG TAB PO SCH (08:17)
[2021-04-11] MEDS: Calcium Carbonate 600 MG TAB PO SCH ×2 (08:17→20:38)
[2021-04-11] MEDS: Cholecalciferol 1,000 UNITS (25 MCG) TAB PO SCH (08:17)
[2021-04-11] MEDS: Multivit, Therapeutic 1 TAB PO SCH (08:18)
[2021-04-11] MEDS: Lantus 1000 UNITS/10 ML VIAL SC SCH ×2 (08:18→21:51)
[2021-04-11] MEDS: Thiamine 100 MG TAB PO SCH (08:18)
[2021-04-11] MEDS: Pantoprazole 40 MG VIAL IVP SCH (08:41)
[2021-04-11] MEDS ORDERED: Magnesium Sulfate 3 GM in Sodium Chloride 0.9% 100 ML IVPB SCH (09:00)
[2021-04-11] MEDS: Dextrose 5% in Water 1,000 ML IV SCH (15:13)
[2021-04-11] MEDS ORDERED: Spironolactone 25 MG TAB PO SCH (15:15)
[2021-04-12] MEDS: Insulin Regular 300 UNITS/3 ML VIAL SC PRN ×4 (00:23→17:07)
[2021-04-12] MEDS: Oxacillin 1 GM in Sodium Chloride 0.9% 100 ML IVPB SCH ×6 (02:00→22:55)
[2021-04-12] MEDS: levETIRAcetam in NS 1,000 MG in Premix Bag 1 BAG IVPB SCH ×2 (03:38→15:55)
[2021-04-12 04:27] LABS: #Lymphocytes 0.9 thou/uL (1.20-3.40); #Monocytes 0.5 thou/uL (0.11-0.59); #Neutrophils 2.9 thou/uL (1.40-6.50); %Basophils 0.5 % (0.0-1.0); %Lymphocytes 20.7 % (21.0-51.0); %Monocytes 11.6 % (0.0-10.0); %Neutrophils 66.1 % (42.0-75.0); Hemoglobin 8.1 g/dL (14.0-18.0); Mean Corpuscular HGB CONC 31.9 g/dL (32.0-36.0); Mean Corpuscular Hemoglobin 31.9 pg (27.0-31.0); Mean Corpuscular Volume 99.9 fL (78.0-98.0); Mean Platelet Volume 9.1 fL (7.4-10.4); Platelet Count 194 thou/uL (130-400); RBC Distribution Width 14.1 % (11.5-14.5); Red Blood Cell (RBC) Count 2.54 mill/uL (4.70-6.10); White Blood Cell (WBC) Count 4.4 thou/uL (4.8-10.8)
[2021-04-12 04:42] LABS: Albumin 2.5 g/dL (3.4-4.8)
[2021-04-12 04:45] LABS: Anion Gap 13 mmol/L (10-20); BUN (Urea Nitrogen) 10 mg/dL (8.4-25.7); Calc. Creatinine Clearance 64 mL/min (70-130); Calcium 7.6 mg/dL (7.8-10.44); Carbon Dioxide 24 mmol/L (23-31); Chloride 113 mmol/L (98-107); Glucose 250 mg/dL (83-110); Magnesium 2.1 mg/dL (1.6-2.6); Potassium 3.2 mmol/L (3.5-5.1); Sodium 147 mmol/L (136-145)
[2021-04-12] MEDS ORDERED: Potassium Chloride 20 MEQ in Premix Bag 1 BAG IVPB SCH (05:15)
[2021-04-12] MEDS ORDERED: Potassium Phosphate 15 MMOL in Sodium Chloride 0.9% 250 ML 250 ML IVPB SCH (05:30)
[2021-04-12] MEDS: Dextrose 5% in Water 1,000 ML IV SCH ×2 (05:49→15:55)
[2021-04-12] MEDS ORDERED: Spironolactone 25 MG TAB PO SCH (08:00)
[2021-04-12] MEDS: Lantus 1000 UNITS/10 ML VIAL SC SCH ×2 (08:42→21:41)
[2021-04-12] MEDS: Pantoprazole 40 MG VIAL IVP SCH (08:42)
[2021-04-12] MEDS: Folic Acid 1 MG TAB PO SCH (08:42)
[2021-04-12] MEDS: Multivit, Therapeutic 1 TAB PO SCH (08:42)
[2021-04-12] MEDS: Thiamine 100 MG TAB PO SCH (08:43)
[2021-04-12] MEDS: Calcium Carbonate 600 MG TAB PO SCH ×2 (08:47→21:03)
[2021-04-12] MEDS: Ergocalciferol 1.25 MG(50,000 UNITS) CAP PO SCH (08:47)
[2021-04-12] MEDS ORDERED: Potassium Chloride 20 MEQ TAB PO SCH (14:45)
[2021-04-12] MEDS ORDERED: Torsemide 10 MG TAB PO SCH (15:45)
[2021-04-12] MEDS: Potassium Bicarbonate/Cit Ac 20 MEQ TAB PO SCH (16:37)
[2021-04-12 17:17] LABS: SARS-CoV-2 PCR by NAA Not Detected (NotDetected)
[2021-04-13] MEDS: Insulin Regular 300 UNITS/3 ML VIAL SC PRN ×2 (00:44→18:32)
[2021-04-13] MEDS: Dextrose 5% in Water 1,000 ML IV SCH (01:26)
[2021-04-13] MEDS: Oxacillin 1 GM in Sodium Chloride 0.9% 100 ML IVPB SCH ×6 (02:39→22:16)
[2021-04-13] MEDS: levETIRAcetam in NS 1,000 MG in Premix Bag 1 BAG IVPB SCH ×2 (04:39→16:31)
[2021-04-13 05:36] LABS: #Eosinphils 0.1 thou/uL (0.0-0.7); #Lymphocytes 1.1 thou/uL (1.20-3.40); #Monocytes 0.4 thou/uL (0.11-0.59); #Neutrophils 2.6 thou/uL (1.40-6.50); %Basophils 0.9 % (0.0-1.0); %Eosinophils 1.8 % (0.0-10.0); %Monocytes 9.6 % (0.0-10.0); %Neutrophils 61.7 % (42.0-75.0); Mean Corpuscular HGB CONC 33.3 g/dL (32.0-36.0); Mean Corpuscular Hemoglobin 32.9 pg (27.0-31.0); Mean Corpuscular Volume 98.7 fL (78.0-98.0); Mean Platelet Volume 8.7 fL (7.4-10.4); Platelet Count 224 thou/uL (130-400); RBC Distribution Width 13.9 % (11.5-14.5); Red Blood Cell (RBC) Count 2.44 mill/uL (4.70-6.10); White Blood Cell (WBC) Count 4.2 thou/uL (4.8-10.8)
[2021-04-13 05:58] LABS: Albumin 2.3 g/dL (3.4-4.8); Phosphorus 2.7 mg/dL (2.3-4.7)
[2021-04-13 06:01] LABS: Anion Gap 10 mmol/L (10-20); BUN (Urea Nitrogen) 6 mg/dL (8.4-25.7); Calc. Creatinine Clearance 90 mL/min (70-130); Calcium 7.6 mg/dL (7.8-10.44); Carbon Dioxide 26 mmol/L (23-31); Chloride 111 mmol/L (98-107); Glucose 152 mg/dL (83-110); Magnesium 1.4 mg/dL (1.6-2.6); Sodium 144 mmol/L (136-145)
[2021-04-13] MEDS ORDERED: Potassium Bicarbonate/Cit Ac 20 MEQ TAB PO SCH (06:30)
[2021-04-13] MEDS ORDERED: Magnesium Sulfate 4 GM in Sodium Chloride 0.9% 250 ML 250 ML IVPB SCH ×2 (07:00→08:00)
[2021-04-13] MEDS ORDERED: Potassium Phosphate 30 MMOL in Sodium Chloride 0.9% 250 ML 250 ML IVPB SCH (08:00)
[2021-04-13] MEDS ORDERED: Torsemide 10 MG TAB PO SCH (09:00)
[2021-04-13] MEDS: Spironolactone 25 MG TAB PO SCH (09:18)
[2021-04-13] MEDS: Metolazone 2.5 MG TAB PO SCH (09:18)
[2021-04-13] MEDS: Folic Acid 1 MG TAB PO SCH (09:18)
[2021-04-13] MEDS: Multivit, Therapeutic 1 TAB PO SCH (09:18)
[2021-04-13] MEDS: Potassium Bicarbonate/Cit Ac 20 MEQ TAB PO SCH ×2 (09:18→16:32)
[2021-04-13] MEDS: Thiamine 100 MG TAB PO SCH (09:19)
[2021-04-13] MEDS: Calcium Carbonate 600 MG TAB PO SCH ×2 (09:19→20:48)
[2021-04-13] MEDS: Pantoprazole 40 MG VIAL IVP SCH (09:20)
[2021-04-13] MEDS ORDERED: Potassium Chloride 20 MEQ TAB PO SCH (09:30)
[2021-04-13] MEDS: Lantus 1000 UNITS/10 ML VIAL SC SCH ×2 (09:37→20:49)
[2021-04-13] MEDS ORDERED: Iopamidol-370 76% 500 ML 1 ML ONE (11:20)
[2021-04-14] MEDS: Oxacillin 1 GM in Sodium Chloride 0.9% 100 ML IVPB SCH ×6 (02:28→22:20)
[2021-04-14] MEDS ORDERED: LACTINEX 1 TAB PO SCH (04:30)
[2021-04-14] MEDS: levETIRAcetam in NS 1,000 MG in Premix Bag 1 BAG IVPB SCH ×2 (04:39→16:08)
[2021-04-14 05:19] LABS: #Eosinphils 0.1 thou/uL (0.0-0.7); #Monocytes 0.5 thou/uL (0.11-0.59); #Neutrophils 3.8 thou/uL (1.40-6.50); %Basophils 0.7 % (0.0-1.0); %Eosinophils 1.8 % (0.0-10.0); %Lymphocytes 19.1 % (21.0-51.0); %Monocytes 8.4 % (0.0-10.0); %Neutrophils 70.1 % (42.0-75.0); Mean Corpuscular HGB CONC 35.1 g/dL (32.0-36.0); Mean Corpuscular Hemoglobin 34.5 pg (27.0-31.0); Mean Corpuscular Volume 98.4 fL (78.0-98.0); Mean Platelet Volume 8.4 fL (7.4-10.4); Platelet Count 240 thou/uL (130-400); RBC Distribution Width 14.1 % (11.5-14.5); Red Blood Cell (RBC) Count 2.61 mill/uL (4.70-6.10); White Blood Cell (WBC) Count 5.5 thou/uL (4.8-10.8)
[2021-04-14 05:42] LABS: Iron 44 ug/dL (65-175); Iron Binding Capacity, Total 126 mcg/dL (261-462)
[2021-04-14 05:43] LABS: Anion Gap 12 mmol/L (10-20); BUN (Urea Nitrogen) 4 mg/dL (8.4-25.7); Calc. Creatinine Clearance 166 mL/min (70-130); Calcium 7.8 mg/dL (7.8-10.44); Carbon Dioxide 25 mmol/L (22-29); Chloride 110 mmol/L (98-107); Potassium 3.2 mmol/L (3.5-5.1); Sodium 144 mmol/L (136-145)
[2021-04-14 05:52] LABS: Glucose 53 mg/dL (70-105)
[2021-04-14] MEDS ORDERED: Potassium Bicarbonate/Cit Ac 20 MEQ TAB PO SCH (06:15)
[2021-04-14] MEDS: Thiamine 100 MG TAB PO SCH (09:38)
[2021-04-14] MEDS: Metolazone 2.5 MG TAB PO SCH (09:38)
[2021-04-14] MEDS: Multivit, Therapeutic 1 TAB PO SCH (09:38)
[2021-04-14] MEDS: Potassium Bicarbonate/Cit Ac 20 MEQ TAB PO SCH ×2 (09:39→16:08)
[2021-04-14] MEDS: Calcium Carbonate 600 MG TAB PO SCH ×2 (09:39→20:21)
[2021-04-14] MEDS: Spironolactone 25 MG TAB PO SCH (09:39)
[2021-04-14] MEDS: Folic Acid 1 MG TAB PO SCH (09:39)
[2021-04-14] MEDS: Pantoprazole 40 MG VIAL IVP SCH (09:40)
[2021-04-14] MEDS: LACTINEX 1 TAB PO SCH ×3 (09:40→20:21)
[2021-04-14] MEDS ORDERED: Potassium Chloride 20 MEQ TAB PO SCH (10:30)
[2021-04-14] MEDS: Lantus 1000 UNITS/10 ML VIAL SC SCH ×2 (11:56→20:25)
[2021-04-14] MEDS: Loperamide HCl 2 MG CAP PO PRN (14:30)
[2021-04-14] MEDS: Acetaminophen 650 MG/20.3 ML UDCUP PO PRN (20:20)
[2021-04-15] MEDS: Oxacillin 1 GM in Sodium Chloride 0.9% 100 ML IVPB SCH ×6 (01:24→22:07)
[2021-04-15] MEDS: levETIRAcetam in NS 1,000 MG in Premix Bag 1 BAG IVPB SCH ×2 (03:42→15:03)
[2021-04-15 04:55] LABS: #Eosinphils 0.1 thou/uL (0.0-0.7); #Lymphocytes 0.9 thou/uL (1.20-3.40); #Monocytes 0.4 thou/uL (0.11-0.59); #Neutrophils 5.4 thou/uL (1.40-6.50); %Basophils 0.5 % (0.0-1.0); %Eosinophils 1.6 % (0.0-10.0); %Lymphocytes 13.6 % (21.0-51.0); %Monocytes 6.2 % (0.0-10.0); %Neutrophils 78.1 % (42.0-75.0); Hemoglobin 8.4 g/dL (14.0-18.0); Mean Corpuscular HGB CONC 33.4 g/dL (32.0-36.0); Mean Corpuscular Hemoglobin 32.8 pg (27.0-31.0); Mean Corpuscular Volume 98.2 fL (78.0-98.0); Mean Platelet Volume 8.5 fL (7.4-10.4); Platelet Count 259 thou/uL (130-400); RBC Distribution Width 14.3 % (11.5-14.5); Red Blood Cell (RBC) Count 2.57 mill/uL (4.70-6.10); White Blood Cell (WBC) Count 6.9 thou/uL (4.8-10.8)
[2021-04-15 05:23] LABS: Anion Gap 13 mmol/L (10-20); BUN (Urea Nitrogen) 4 mg/dL (8.4-25.7); Calc. Creatinine Clearance 147 mL/min (70-130); Calcium 8.1 mg/dL (7.8-10.44); Carbon Dioxide 24 mmol/L (22-29); Chloride 107 mmol/L (98-107); Glucose 137 mg/dL (70-105); Potassium 3.5 mmol/L (3.5-5.1); Sodium 140 mmol/L (136-145)
[2021-04-15] MEDS ORDERED: Potassium Bicarbonate/Cit Ac 20 MEQ TAB PO SCH (07:00)
[2021-04-15] MEDS: Potassium Bicarbonate/Cit Ac 20 MEQ TAB PO SCH ×2 (08:44→19:17)
[2021-04-15] MEDS: Multivit, Therapeutic 1 TAB PO SCH (08:45)
[2021-04-15] MEDS: Pantoprazole 40 MG VIAL IVP SCH (08:45)
[2021-04-15] MEDS: Spironolactone 25 MG TAB PO SCH (08:46)
[2021-04-15] MEDS: Metolazone 2.5 MG TAB PO SCH (08:47)
[2021-04-15] MEDS: Folic Acid 1 MG TAB PO SCH (08:48)
[2021-04-15] MEDS: LACTINEX 1 TAB PO SCH ×3 (08:48→20:35)
[2021-04-15] MEDS: Thiamine 100 MG TAB PO SCH (08:48)
[2021-04-15] MEDS: Acetaminophen 650 MG/20.3 ML UDCUP PO PRN (08:52)
[2021-04-15] MEDS: Calcium Carbonate 600 MG TAB PO SCH ×2 (09:07→20:39)
[2021-04-15] MEDS: Lantus 1000 UNITS/10 ML VIAL SC SCH ×2 (09:35→20:41)
[2021-04-15] MEDS: Insulin Regular 300 UNITS/3 ML VIAL SC PRN (12:59)
[2021-04-16] MEDS: Oxacillin 1 GM in Sodium Chloride 0.9% 100 ML IVPB SCH ×6 (02:15→22:06)
[2021-04-16] MEDS: levETIRAcetam in NS 1,000 MG in Premix Bag 1 BAG IVPB SCH ×2 (03:31→16:04)
[2021-04-16 05:07] LABS: #Eosinphils 0.1 thou/uL (0.0-0.7); #Monocytes 0.6 thou/uL (0.11-0.59); #Neutrophils 6.5 thou/uL (1.40-6.50); %Basophils 0.1 % (0.0-1.0); %Eosinophils 1.3 % (0.0-10.0); %Lymphocytes 12.1 % (21.0-51.0); %Neutrophils 79.6 % (42.0-75.0); Hemoglobin 8.6 g/dL (14.0-18.0); Mean Corpuscular Hemoglobin 33.8 pg (27.0-31.0); Mean Corpuscular Volume 99.4 fL (78.0-98.0); Platelet Count 276 thou/uL (130-400); RBC Distribution Width 14.3 % (11.5-14.5); Red Blood Cell (RBC) Count 2.55 mill/uL (4.70-6.10); White Blood Cell (WBC) Count 8.2 thou/uL (4.8-10.8)
[2021-04-16 05:11] LABS: Anion Gap 13 mmol/L (10-20); BUN (Urea Nitrogen) 5 mg/dL (8.4-25.7); Calc. Creatinine Clearance 169 mL/min (70-130); Carbon Dioxide 23 mmol/L (22-29); Chloride 103 mmol/L (98-107); Potassium 3.4 mmol/L (3.5-5.1); Sodium 136 mmol/L (136-145)
[2021-04-16 05:12] LABS: Calcium 8.1 mg/dL (7.8-10.44); Glucose 67 mg/dL (70-105)
[2021-04-16] MEDS ORDERED: Potassium Bicarbonate/Cit Ac 20 MEQ TAB PO SCH (06:30)
[2021-04-16] MEDS ORDERED: Potassium Chloride 20 MEQ TAB PO SCH (07:45)
[2021-04-16] MEDS: Potassium Bicarbonate/Cit Ac 20 MEQ TAB PO SCH ×2 (08:03→16:04)
[2021-04-16] MEDS: Pantoprazole 40 MG VIAL IVP SCH (08:57)
[2021-04-16] MEDS: Metolazone 2.5 MG TAB PO SCH (08:57)
[2021-04-16] MEDS: Spironolactone 25 MG TAB PO SCH (08:58)
[2021-04-16] MEDS: LACTINEX 1 TAB PO SCH ×3 (08:59→22:06)
[2021-04-16] MEDS: Lantus 1000 UNITS/10 ML VIAL SC SCH ×2 (08:59→22:06)
[2021-04-16] MEDS: Calcium Carbonate 600 MG TAB PO SCH ×2 (08:59→22:06)
[2021-04-16] MEDS: Folic Acid 1 MG TAB PO SCH (15:59)
[2021-04-16] MEDS: Multivit, Therapeutic 1 TAB PO SCH (15:59)
[2021-04-16] MEDS: Thiamine 100 MG TAB PO SCH (15:59)
[2021-04-16] MEDS: Loperamide HCl 2 MG CAP PO PRN (18:08)
[2021-04-17] MEDS: Oxacillin 1 GM in Sodium Chloride 0.9% 100 ML IVPB SCH ×6 (02:26→22:15)
[2021-04-17] MEDS: levETIRAcetam in NS 1,000 MG in Premix Bag 1 BAG IVPB SCH ×2 (03:56→16:53)
[2021-04-17 05:41] LABS: #Eosinphils 0.2 thou/uL (0.0-0.7); #Monocytes 0.7 thou/uL (0.11-0.59); #Neutrophils 4.8 thou/uL (1.40-6.50); %Basophils 0.6 % (0.0-1.0); %Eosinophils 2.4 % (0.0-10.0); %Lymphocytes 14.7 % (21.0-51.0); %Neutrophils 71.4 % (42.0-75.0); Hemoglobin 8.6 g/dL (14.0-18.0); Mean Corpuscular HGB CONC 33.1 g/dL (32.0-36.0); Mean Corpuscular Hemoglobin 32.2 pg (27.0-31.0); Mean Corpuscular Volume 97.1 fL (78.0-98.0); Mean Platelet Volume 7.9 fL (7.4-10.4); Platelet Count 349 thou/uL (130-400); Red Blood Cell (RBC) Count 2.67 mill/uL (4.70-6.10); White Blood Cell (WBC) Count 6.7 thou/uL (4.8-10.8)
[2021-04-17 05:56] LABS: Anion Gap 11 mmol/L (10-20); BUN (Urea Nitrogen) 5 mg/dL (8.4-25.7); Calc. Creatinine Clearance 147 mL/min (70-130); Calcium 7.9 mg/dL (7.8-10.44); Carbon Dioxide 26 mmol/L (22-29); Chloride 100 mmol/L (98-107); Glucose 92 mg/dL (70-105); Potassium 3.1 mmol/L (3.5-5.1); Sodium 134 mmol/L (136-145)
[2021-04-17] MEDS ORDERED: Potassium Chloride 20 MEQ TAB PO SCH ×2 (06:45→13:15)
[2021-04-17] MEDS: Thiamine 100 MG TAB PO SCH (09:46)
[2021-04-17] MEDS: Calcium Carbonate 600 MG TAB PO SCH ×2 (09:46→22:50)
[2021-04-17] MEDS: Potassium Bicarbonate/Cit Ac 20 MEQ TAB PO SCH ×2 (09:46→16:53)
[2021-04-17] MEDS: Multivit, Therapeutic 1 TAB PO SCH (09:46)
[2021-04-17] MEDS: Folic Acid 1 MG TAB PO SCH (09:46)
[2021-04-17] MEDS: Spironolactone 25 MG TAB PO SCH (09:46)
[2021-04-17] MEDS: Metolazone 2.5 MG TAB PO SCH (09:46)
[2021-04-17] MEDS: LACTINEX 1 TAB PO SCH ×3 (09:47→22:13)
[2021-04-17] MEDS: Pantoprazole 40 MG VIAL IVP SCH (09:47)
[2021-04-17 11:56] LABS: Potassium 3.5 mmol/L (3.5-5.1)
[2021-04-17] MEDS ORDERED: PROPOFOL 0 ML ONE (12:34)
[2021-04-17] MEDS: Loperamide HCl 2 MG CAP PO PRN ×2 (16:53→22:16)
[2021-04-17] MEDS: Acetaminophen 650 MG/20.3 ML UDCUP PO PRN (16:53)
[2021-04-17] MEDS: Insulin Regular 300 UNITS/3 ML VIAL SC PRN (17:28)
[2021-04-17 18:24] LABS: Potassium 3.5 mmol/L (3.5-5.1)
[2021-04-17] MEDS: Lantus 1000 UNITS/10 ML VIAL SC SCH (22:15)
[2021-04-18] MEDS: Oxacillin 1 GM in Sodium Chloride 0.9% 100 ML IVPB SCH ×6 (02:09→22:18)
[2021-04-18] MEDS: levETIRAcetam in NS 1,000 MG in Premix Bag 1 BAG IVPB SCH ×2 (04:32→16:49)
[2021-04-18 04:50] LABS: #Basophils 0.1 thou/uL (0.0-0.2); #Eosinphils 0.2 thou/uL (0.0-0.7); #Lymphocytes 1.4 thou/uL (1.20-3.40); #Monocytes 0.7 thou/uL (0.11-0.59); #Neutrophils 4.1 thou/uL (1.40-6.50); %Eosinophils 3.3 % (0.0-10.0); %Lymphocytes 21.2 % (21.0-51.0); %Monocytes 10.2 % (0.0-10.0); %Neutrophils 64.3 % (42.0-75.0); Hemoglobin 8.2 g/dL (14.0-18.0); Mean Corpuscular Hemoglobin 34.1 pg (27.0-31.0); Mean Corpuscular Volume 97.4 fL (78.0-98.0); Mean Platelet Volume 7.5 fL (7.4-10.4); Platelet Count 348 thou/uL (130-400); RBC Distribution Width 13.7 % (11.5-14.5); Red Blood Cell (RBC) Count 2.41 mill/uL (4.70-6.10); White Blood Cell (WBC) Count 6.4 thou/uL (4.8-10.8)
[2021-04-18 05:12] LABS: Anion Gap 14 mmol/L (10-20); BUN (Urea Nitrogen) 4 mg/dL (8.4-25.7); Calc. Creatinine Clearance 142 mL/min (70-130); Calcium 7.8 mg/dL (7.8-10.44); Carbon Dioxide 26 mmol/L (22-29); Chloride 102 mmol/L (98-107); Glucose 84 mg/dL (70-105); Potassium 3.8 mmol/L (3.5-5.1); Sodium 138 mmol/L (136-145)
[2021-04-18] MEDS ORDERED: Potassium Bicarbonate/Cit Ac 20 MEQ TAB PER TUBE SCH (07:00)
[2021-04-18] MEDS: Metolazone 2.5 MG TAB PO SCH (09:13)
[2021-04-18] MEDS: LACTINEX 1 TAB PO SCH ×3 (09:13→20:23)
[2021-04-18] MEDS: Thiamine 100 MG TAB PO SCH (09:13)
[2021-04-18] MEDS: Folic Acid 1 MG TAB PO SCH (09:13)
[2021-04-18] MEDS: Multivit, Therapeutic 1 TAB PO SCH (09:13)
[2021-04-18] MEDS: Potassium Bicarbonate/Cit Ac 20 MEQ TAB PO SCH ×2 (09:13→16:49)
[2021-04-18] MEDS: Calcium Carbonate 600 MG TAB PO SCH ×2 (09:13→20:23)
[2021-04-18] MEDS: Spironolactone 25 MG TAB PO SCH (09:13)
[2021-04-18] MEDS: Pantoprazole 40 MG VIAL IVP SCH (09:14)
[2021-04-18] MEDS ORDERED: Fentanyl 100 MCG/2 ML VIAL ONE (13:41)
[2021-04-18] MEDS ORDERED: PROPOFOL 0 ML ONE (13:42)
[2021-04-18] MEDS ORDERED: PROPOFOL 200 MG/20 ML VIAL ONE (13:52)
[2021-04-18] MEDS ORDERED: ePHEDrine 50 MG/ML VIAL ONE (13:52)
[2021-04-18] MEDS ORDERED: PROPOFOL 20 ML ONE (14:09)
[2021-04-18] MEDS ORDERED: Sodium Chloride 0.9% 10 ML ONE (14:26)
[2021-04-18] MEDS: Lantus 1000 UNITS/10 ML VIAL SC SCH (20:23)
[2021-04-19] MEDS: Oxacillin 1 GM in Sodium Chloride 0.9% 100 ML IVPB SCH ×6 (01:54→21:40)
[2021-04-19] MEDS: levETIRAcetam in NS 1,000 MG in Premix Bag 1 BAG IVPB SCH ×2 (04:02→16:36)
[2021-04-19 04:42] LABS: #Basophils 0.1 thou/uL (0.0-0.2); #Eosinphils 0.2 thou/uL (0.0-0.7); #Lymphocytes 1.4 thou/uL (1.20-3.40); #Monocytes 0.8 thou/uL (0.11-0.59); #Neutrophils 4.4 thou/uL (1.40-6.50); %Basophils 1.5 % (0.0-1.0); %Eosinophils 2.8 % (0.0-10.0); %Lymphocytes 20.3 % (21.0-51.0); %Monocytes 12.1 % (0.0-10.0); %Neutrophils 63.2 % (42.0-75.0); Hemoglobin 8.4 g/dL (14.0-18.0); Mean Corpuscular HGB CONC 34.2 g/dL (32.0-36.0); Mean Corpuscular Hemoglobin 33.4 pg (27.0-31.0); Mean Corpuscular Volume 97.6 fL (78.0-98.0); Mean Platelet Volume 7.6 fL (7.4-10.4); Platelet Count 379 thou/uL (130-400); RBC Distribution Width 13.6 % (11.5-14.5); White Blood Cell (WBC) Count 6.9 thou/uL (4.8-10.8)
[2021-04-19 05:02] LABS: Anion Gap 14 mmol/L (10-20); BUN (Urea Nitrogen) Less than 4 mg/dL (8.4-25.7); Calc. Creatinine Clearance 118 mL/min (70-130); Calcium 7.8 mg/dL (7.8-10.44); Carbon Dioxide 25 mmol/L (22-29); Chloride 98 mmol/L (98-107); Glucose 167 mg/dL (70-105); Potassium 3.9 mmol/L (3.5-5.1); Sodium 133 mmol/L (136-145)
[2021-04-19] MEDS: Potassium Bicarbonate/Cit Ac 20 MEQ TAB PO SCH ×2 (09:03→16:36)
[2021-04-19] MEDS: Metolazone 2.5 MG TAB PO SCH (09:04)
[2021-04-19] MEDS: Pantoprazole 40 MG VIAL IVP SCH (09:04)
[2021-04-19] MEDS: Loperamide HCl 2 MG CAP PO PRN (09:04)
[2021-04-19] MEDS: Calcium Carbonate 600 MG TAB PO SCH ×2 (09:04→19:53)
[2021-04-19] MEDS: Multivit, Therapeutic 1 TAB PO SCH (09:04)
[2021-04-19] MEDS: Ergocalciferol 1.25 MG(50,000 UNITS) CAP PO SCH (09:04)
[2021-04-19] MEDS: Spironolactone 25 MG TAB PO SCH (09:04)
[2021-04-19] MEDS: Folic Acid 1 MG TAB PO SCH (09:04)
[2021-04-19] MEDS: LACTINEX 1 TAB PO SCH ×3 (09:04→19:53)
[2021-04-19] MEDS: Thiamine 100 MG TAB PO SCH (09:04)
[2021-04-19] MEDS: Meclizine HCl 25 MG TAB PO SCH ×2 (14:18→21:39)
[2021-04-19] MEDS: Lantus 1000 UNITS/10 ML VIAL SC SCH (19:53)
[2021-04-19 22:05] LABS: SARS-CoV-2 PCR by NAA Not Detected (NotDetected)
[2021-04-20] MEDS: Oxacillin 1 GM in Sodium Chloride 0.9% 100 ML IVPB SCH ×4 (01:59→14:55)
[2021-04-20] MEDS: levETIRAcetam in NS 1,000 MG in Premix Bag 1 BAG IVPB SCH ×2 (03:53→15:50)
[2021-04-20 05:01] LABS: #Basophils 0.1 thou/uL (0.0-0.2); #Eosinphils 0.3 thou/uL (0.0-0.7); #Lymphocytes 1.5 thou/uL (1.20-3.40); #Monocytes 0.8 thou/uL (0.11-0.59); #Neutrophils 3.8 thou/uL (1.40-6.50); %Basophils 1.2 % (0.0-1.0); %Eosinophils 4.1 % (0.0-10.0); %Lymphocytes 23.7 % (21.0-51.0); Hemoglobin 8.6 g/dL (14.0-18.0); Mean Corpuscular HGB CONC 32.4 g/dL (32.0-36.0); Mean Corpuscular Hemoglobin 31.4 pg (27.0-31.0); Mean Corpuscular Volume 96.9 fL (78.0-98.0); Mean Platelet Volume 7.5 fL (7.4-10.4); Platelet Count 376 thou/uL (130-400); RBC Distribution Width 13.7 % (11.5-14.5); Red Blood Cell (RBC) Count 2.75 mill/uL (4.70-6.10); White Blood Cell (WBC) Count 6.4 thou/uL (4.8-10.8)
[2021-04-20] MEDS: Meclizine HCl 25 MG TAB PO SCH (05:01)
[2021-04-20 05:18] LABS: Anion Gap 13 mmol/L (10-20); BUN (Urea Nitrogen) 5 mg/dL (8.4-25.7); Calc. Creatinine Clearance 120 mL/min (70-130); Calcium 8.1 mg/dL (7.8-10.44); Carbon Dioxide 30 mmol/L (22-29); Chloride 97 mmol/L (98-107); Glucose 173 mg/dL (70-105); Potassium 4.2 mmol/L (3.5-5.1); Sodium 136 mmol/L (136-145)
[2021-04-20] MEDS: Spironolactone 25 MG TAB PO SCH (09:02)
[2021-04-20] MEDS: Thiamine 100 MG TAB PO SCH (09:02)
[2021-04-20] MEDS: Multivit, Therapeutic 1 TAB PO SCH (09:02)
[2021-04-20] MEDS: Metolazone 2.5 MG TAB PO SCH (09:02)
[2021-04-20] MEDS: Potassium Bicarbonate/Cit Ac 20 MEQ TAB PO SCH ×2 (09:02→15:50)
[2021-04-20] MEDS: LACTINEX 1 TAB PO SCH ×3 (09:02→21:00)
[2021-04-20] MEDS: Calcium Carbonate 600 MG TAB PO SCH ×2 (09:02→21:00)
[2021-04-20] MEDS: Folic Acid 1 MG TAB PO SCH (09:02)
[2021-04-20] MEDS: Pantoprazole 40 MG VIAL IVP SCH (09:03)
[2021-04-20] MEDS: Insulin Regular 300 UNITS/3 ML VIAL SC PRN ×2 (14:55→16:48)
[2021-04-20] MEDS: ceFAZolin Sodium/D5W 2 GM in Premix Bag 1 BAG IVPB SCH (15:49)
[2021-04-20] MEDS: Acetaminophen 650 MG/20.3 ML UDCUP PO PRN (20:59)
[2021-04-20] MEDS: Loperamide HCl 2 MG CAP PO PRN (21:00)
[2021-04-20] MEDS: Lantus 1000 UNITS/10 ML VIAL SC SCH (21:00)
[2021-04-21] MEDS: ceFAZolin Sodium/D5W 2 GM in Premix Bag 1 BAG IVPB SCH ×3 (00:46→15:53)
[2021-04-21] MEDS: levETIRAcetam in NS 1,000 MG in Premix Bag 1 BAG IVPB SCH ×2 (04:51→15:53)
[2021-04-21 05:21] LABS: #Basophils 0.1 thou/uL (0.0-0.2); #Eosinphils 0.3 thou/uL (0.0-0.7); #Lymphocytes 1.8 thou/uL (1.20-3.40); #Monocytes 0.7 thou/uL (0.11-0.59); %Basophils 1.8 % (0.0-1.0); %Eosinophils 4.1 % (0.0-10.0); %Lymphocytes 25.8 % (21.0-51.0); %Monocytes 9.9 % (0.0-10.0); %Neutrophils 58.5 % (42.0-75.0); Hemoglobin 9.7 g/dL (14.0-18.0); Mean Corpuscular HGB CONC 34.8 g/dL (32.0-36.0); Mean Corpuscular Hemoglobin 33.7 pg (27.0-31.0); Mean Corpuscular Volume 96.8 fL (78.0-98.0); Mean Platelet Volume 7.4 fL (7.4-10.4); Platelet Count 439 thou/uL (130-400); RBC Distribution Width 13.6 % (11.5-14.5); Red Blood Cell (RBC) Count 2.89 mill/uL (4.70-6.10); White Blood Cell (WBC) Count 6.8 thou/uL (4.8-10.8)
[2021-04-21] MEDS: Insulin Regular 300 UNITS/3 ML VIAL SC PRN ×3 (05:28→17:43)
[2021-04-21 05:44] LABS: Anion Gap 15 mmol/L (10-20); BUN (Urea Nitrogen) 8 mg/dL (8.4-25.7); Calc. Creatinine Clearance 104 mL/min (70-130); Calcium 8.7 mg/dL (7.8-10.44); Carbon Dioxide 30 mmol/L (22-29); Chloride 90 mmol/L (98-107); Glucose 286 mg/dL (70-105); Potassium 4.3 mmol/L (3.5-5.1); Sodium 131 mmol/L (136-145)
[2021-04-21] MEDS: Metolazone 2.5 MG TAB PO SCH (08:42)
[2021-04-21] MEDS: Calcium Carbonate 600 MG TAB PO SCH ×2 (08:42→20:07)
[2021-04-21] MEDS: Multivit, Therapeutic 1 TAB PO SCH (08:42)
[2021-04-21] MEDS: Potassium Bicarbonate/Cit Ac 20 MEQ TAB PO SCH ×2 (08:42→15:54)
[2021-04-21] MEDS: LACTINEX 1 TAB PO SCH ×3 (08:42→20:07)
[2021-04-21] MEDS: Pantoprazole 40 MG VIAL IVP SCH (08:42)
[2021-04-21] MEDS: Folic Acid 1 MG TAB PO SCH (08:42)
[2021-04-21] MEDS: Thiamine 100 MG TAB PO SCH (08:42)
[2021-04-21] MEDS: Sodium Chloride 0.9% 1,000 ML IV SCH (13:03)
[2021-04-21] MEDS: Loperamide HCl 2 MG CAP PO PRN (20:07)
[2021-04-21] MEDS: Lantus 1000 UNITS/10 ML VIAL SC SCH (22:08)
[2021-04-22] MEDS: ceFAZolin Sodium/D5W 2 GM in Premix Bag 1 BAG IVPB SCH ×3 (00:32→16:03)
[2021-04-22] MEDS: Sodium Chloride 0.9% 1,000 ML IV SCH ×2 (03:47→13:44)
[2021-04-22] MEDS: levETIRAcetam in NS 1,000 MG in Premix Bag 1 BAG IVPB SCH ×2 (04:24→16:03)
[2021-04-22] MEDS: Insulin Regular 300 UNITS/3 ML VIAL SC PRN ×3 (04:30→16:51)
[2021-04-22 04:57] LABS: #Basophils 0.1 thou/uL (0.0-0.2); #Eosinphils 0.3 thou/uL (0.0-0.7); #Lymphocytes 1.8 thou/uL (1.20-3.40); #Monocytes 0.7 thou/uL (0.11-0.59); #Neutrophils 3.4 thou/uL (1.40-6.50); %Basophils 1.5 % (0.0-1.0); %Eosinophils 5.3 % (0.0-10.0); %Lymphocytes 28.5 % (21.0-51.0); %Monocytes 11.5 % (0.0-10.0); %Neutrophils 53.2 % (42.0-75.0); Hemoglobin 8.7 g/dL (14.0-18.0); Mean Corpuscular HGB CONC 33.6 g/dL (32.0-36.0); Mean Corpuscular Hemoglobin 32.5 pg (27.0-31.0); Mean Corpuscular Volume 96.5 fL (78.0-98.0); Mean Platelet Volume 7.2 fL (7.4-10.4); Platelet Count 456 thou/uL (130-400); RBC Distribution Width 13.4 % (11.5-14.5); Red Blood Cell (RBC) Count 2.67 mill/uL (4.70-6.10); White Blood Cell (WBC) Count 6.3 thou/uL (4.8-10.8)
[2021-04-22 05:22] LABS: Anion Gap 13 mmol/L (10-20); BUN (Urea Nitrogen) 12 mg/dL (8.4-25.7); Calc. Creatinine Clearance 91 mL/min (70-130); Calcium 8.5 mg/dL (7.8-10.44); Carbon Dioxide 30 mmol/L (22-29); Chloride 93 mmol/L (98-107); Glucose 304 mg/dL (70-105); Potassium 4.4 mmol/L (3.5-5.1); Sodium 132 mmol/L (136-145)
[2021-04-22] MEDS: LACTINEX 1 TAB PO SCH ×3 (08:46→21:31)
[2021-04-22] MEDS: Metolazone 2.5 MG TAB PO SCH (08:46)
[2021-04-22] MEDS: Potassium Bicarbonate/Cit Ac 20 MEQ TAB PO SCH ×2 (08:46→16:04)
[2021-04-22] MEDS: Folic Acid 1 MG TAB PO SCH (08:46)
[2021-04-22] MEDS: Multivit, Therapeutic 1 TAB PO SCH (08:46)
[2021-04-22] MEDS: Thiamine 100 MG TAB PO SCH (08:47)
[2021-04-22] MEDS: Calcium Carbonate 600 MG TAB PO SCH ×2 (08:47→21:31)
[2021-04-22 09:29] VITALS: BMI 20.5
[2021-04-22] MEDS ORDERED: Lantus 1000 UNITS/10 ML VIAL SC SCH (11:10)
[2021-04-22] MEDS: Lantus 1000 UNITS/10 ML VIAL SC SCH (21:24)
[2021-04-23] MEDS: ceFAZolin Sodium/D5W 2 GM in Premix Bag 1 BAG IVPB SCH ×3 (00:52→15:59)
[2021-04-23] MEDS: Sodium Chloride 0.9% 1,000 ML IV SCH ×2 (03:36→17:04)
[2021-04-23] MEDS: Insulin Regular 300 UNITS/3 ML VIAL SC PRN ×2 (04:31→14:11)
[2021-04-23] MEDS: levETIRAcetam in NS 1,000 MG in Premix Bag 1 BAG IVPB SCH ×2 (04:33→15:59)
[2021-04-23 04:58] LABS: #Basophils 0.1 thou/uL (0.0-0.2); #Eosinphils 0.3 thou/uL (0.0-0.7); #Lymphocytes 1.8 thou/uL (1.20-3.40); #Monocytes 0.8 thou/uL (0.11-0.59); #Neutrophils 3.2 thou/uL (1.40-6.50); %Basophils 1.7 % (0.0-1.0); %Eosinophils 5.6 % (0.0-10.0); %Lymphocytes 28.7 % (21.0-51.0); %Monocytes 12.3 % (0.0-10.0); %Neutrophils 51.8 % (42.0-75.0); Hemoglobin 8.4 g/dL (14.0-18.0); Mean Corpuscular HGB CONC 34.1 g/dL (32.0-36.0); Mean Corpuscular Hemoglobin 32.7 pg (27.0-31.0); Mean Platelet Volume 6.9 fL (7.4-10.4); Platelet Count 490 thou/uL (130-400); RBC Distribution Width 13.5 % (11.5-14.5); Red Blood Cell (RBC) Count 2.58 mill/uL (4.70-6.10); White Blood Cell (WBC) Count 6.2 thou/uL (4.8-10.8)
[2021-04-23 05:22] LABS: Anion Gap 12 mmol/L (10-20); BUN (Urea Nitrogen) 9 mg/dL (8.4-25.7); Calc. Creatinine Clearance 106 mL/min (70-130); Calcium 8.1 mg/dL (7.8-10.44); Carbon Dioxide 26 mmol/L (22-29); Chloride 98 mmol/L (98-107); Glucose 233 mg/dL (70-105); Potassium 4.2 mmol/L (3.5-5.1); Sodium 132 mmol/L (136-145)
[2021-04-23] MEDS ORDERED: Hydrocerin (Eucerin) Cream 120 gm Jar TOP PRN (07:11)
[2021-04-23] MEDS ORDERED: Benzonatate 100 MG CAP PO PRN (07:11)
[2021-04-23] MEDS ORDERED: Senokot S 8.6-50 MG TAB PO PRN (07:11)
[2021-04-23] MEDS ORDERED: Sodium Chloride 0.65% Nasal 44 ML BOT EA NARE PRN (07:11)
[2021-04-23] MEDS ORDERED: GUAIFENESIN SF SOLN 200 MG/10 ML UDCUP PO PRN (07:11)
[2021-04-23] MEDS ORDERED: HYDROcodone/Acetaminophen 5/325 mg Tablet PO PRN (07:11)
[2021-04-23] MEDS ORDERED: hydrALAZINE 20 MG/ML VIAL SLOW IVP PRN (07:11)
[2021-04-23] MEDS ORDERED: Artificial Tear Sol 15 ML BOT EA EYE PRN (07:11)
[2021-04-23] MEDS ORDERED: Calcium Carbonate 500 MG ChewTAB PO PRN (07:11)
[2021-04-23] MEDS ORDERED: Zolpidem Tartrate 5 MG TAB PO PRN (07:11)
[2021-04-23] MEDS ORDERED: Cepastat Lozenges 1 LOZ PO PRN (07:11)
[2021-04-23] MEDS ORDERED: Loratadine 10 MG TAB PO PRN (07:11)
[2021-04-23] MEDS ORDERED: Ondansetron PF 4 MG/2 ML Vial IVP PRN (07:11)
[2021-04-23] MEDS: Folic Acid 1 MG TAB PO SCH (10:24)
[2021-04-23] MEDS: Calcium Carbonate 600 MG TAB PO SCH ×2 (10:24→20:14)
[2021-04-23] MEDS: LACTINEX 1 TAB PO SCH ×3 (10:24→20:14)
[2021-04-23] MEDS: Multivit, Therapeutic 1 TAB PO SCH (10:24)
[2021-04-23] MEDS: Thiamine 100 MG TAB PO SCH (10:24)
[2021-04-23] MEDS: Potassium Bicarbonate/Cit Ac 20 MEQ TAB PO SCH ×2 (10:24→18:23)
[2021-04-23] MEDS: Lantus 1000 UNITS/10 ML VIAL SC SCH (20:41)
[2021-04-24] MEDS: ceFAZolin Sodium/D5W 2 GM in Premix Bag 1 BAG IVPB SCH ×2 (00:46→09:56)
[2021-04-24] MEDS: Insulin Regular 300 UNITS/3 ML VIAL SC PRN ×2 (04:21→14:10)
[2021-04-24] MEDS: levETIRAcetam in NS 1,000 MG in Premix Bag 1 BAG IVPB SCH (04:21)
[2021-04-24 05:10] LABS: ALT (SGPT) Less than 7 U/L (8-55); AST (SGOT) 19 U/L (5-34); Albumin 2.7 g/dL (3.5-5.0); Alkaline Phosphatase 291 U/L (40-110); Anion Gap 10 mmol/L (10-20); BUN (Urea Nitrogen) 6 mg/dL (8.4-25.7); Bilirubin, Direct 0.2 mg/dL (0.1-0.3); Bilirubin, Total 0.3 mg/dL (0.2-1.2); CRP (Inflammatory) 1.25 mg/dL (= or < 0.5); Calc. Creatinine Clearance 106 mL/min (70-130); Calcium 8.5 mg/dL (7.8-10.44); Carbon Dioxide 27 mmol/L (22-29); Chloride 100 mmol/L (98-107); Glucose 213 mg/dL (70-105); Potassium 4.2 mmol/L (3.5-5.1); Protein, Total 6.4 g/dL (6.0-8.3); Sodium 133 mmol/L (136-145)
[2021-04-24 05:50] LABS: #Basophils 0.1 thou/uL (0.0-0.2); #Eosinphils 0.5 thou/uL (0.0-0.7); #Lymphocytes 1.6 thou/uL (1.20-3.40); #Monocytes 0.6 thou/uL (0.11-0.59); #Neutrophils 3.4 thou/uL (1.40-6.50); %Eosinophils 7.7 % (0.0-10.0); %Lymphocytes 26.3 % (21.0-51.0); %Monocytes 9.2 % (0.0-10.0); %Neutrophils 54.9 % (42.0-75.0); Hemoglobin 8.4 g/dL (14.0-18.0); Mean Corpuscular HGB CONC 32.6 g/dL (32.0-36.0); Mean Corpuscular Hemoglobin 31.4 pg (27.0-31.0); Mean Corpuscular Volume 96.4 fL (78.0-98.0); Mean Platelet Volume 7.1 fL (7.4-10.4); Platelet Count 535 thou/uL (130-400); RBC Distribution Width 13.6 % (11.5-14.5); Red Blood Cell (RBC) Count 2.66 mill/uL (4.70-6.10); White Blood Cell (WBC) Count 6.3 thou/uL (4.8-10.8)
[2021-04-24] MEDS: Sodium Chloride 0.9% 1,000 ML IV SCH (05:57)
[2021-04-24] MEDS ORDERED: Lantus 1000 UNITS/10 ML VIAL SC SCH ×2 (09:00→21:00)
[2021-04-24] MEDS: Folic Acid 1 MG TAB PO SCH (09:55)
[2021-04-24] MEDS: Potassium Bicarbonate/Cit Ac 20 MEQ TAB PO SCH ×2 (09:55→16:10)
[2021-04-24] MEDS: Calcium Carbonate 600 MG TAB PO SCH ×2 (09:55→22:07)
[2021-04-24] MEDS: levETIRAcetam 500 MG TAB PO SCH ×2 (09:55→22:07)
[2021-04-24] MEDS: Thiamine 100 MG TAB PO SCH (09:55)
[2021-04-24] MEDS: LACTINEX 1 TAB PO SCH ×3 (09:55→22:07)
[2021-04-24] MEDS: Multivit, Therapeutic 1 TAB PO SCH (09:56)
[2021-04-24] MEDS: Ferrous Sulfate 325 MG TAB PO SCH (09:56)
[2021-04-24] MEDS: CEFAZOLIN 2 GM in Sodium Chloride 0.9% 100 ML IVPB SCH (15:39)
[2021-04-24] MEDS: HumuLIN 70/30 (300 UNITS/3 ML VIAL) SC SCH (22:07)
[2021-04-25] MEDS: CEFAZOLIN 2 GM in Sodium Chloride 0.9% 100 ML IVPB SCH ×3 (00:20→17:02)
[2021-04-25] MEDS: Thiamine 100 MG TAB PO SCH (08:31)
[2021-04-25] MEDS: levETIRAcetam 500 MG TAB PO SCH ×2 (08:31→21:54)
[2021-04-25] MEDS: LACTINEX 1 TAB PO SCH ×3 (08:31→21:54)
[2021-04-25] MEDS: Calcium Carbonate 600 MG TAB PO SCH ×2 (08:31→21:54)
[2021-04-25] MEDS: HumuLIN 70/30 (300 UNITS/3 ML VIAL) SC SCH ×2 (08:31→21:56)
[2021-04-25] MEDS: Folic Acid 1 MG TAB PO SCH (08:31)
[2021-04-25] MEDS: Multivit, Therapeutic 1 TAB PO SCH (08:31)
[2021-04-25] MEDS: Ferrous Sulfate 325 MG TAB PO SCH (08:31)
[2021-04-25] MEDS: Potassium Bicarbonate/Cit Ac 20 MEQ TAB PO SCH (10:06)
[2021-04-25] MEDS ORDERED: HumuLIN 70/30 (300 UNITS/3 ML VIAL) SC SCH (10:15)
[2021-04-25 20:35] VITALS: TEMP 97.4
[2021-04-26] MEDS: Insulin Regular 300 UNITS/3 ML VIAL SC PRN (00:40)
[2021-04-26] MEDS: CEFAZOLIN 2 GM in Sodium Chloride 0.9% 100 ML IVPB SCH ×2 (00:46→08:20)
[2021-04-26] MEDS ORDERED: Dextrose 50% Abboject 50 ML SYRINGE ONE (03:30)
[2021-04-26 08:32] VITALS: BP 148/95
[2021-04-26] MEDS ORDERED: HumuLIN 70/30 (300 UNITS/3 ML VIAL) SC SCH ×2 (09:00→21:00)
[2021-04-26] MEDS: Ferrous Sulfate 325 MG TAB PO SCH (09:26)
[2021-04-26] MEDS: Thiamine 100 MG TAB PO SCH (09:27)
[2021-04-26] MEDS: levETIRAcetam 500 MG TAB PO SCH (09:27)
[2021-04-26] MEDS: Folic Acid 1 MG TAB PO SCH (09:27)
[2021-04-26] MEDS: Multivit, Therapeutic 1 TAB PO SCH (09:28)
[2021-04-26] MEDS: Calcium Carbonate 600 MG TAB PO SCH (09:31)
[2021-04-26] MEDS: LACTINEX 1 TAB PO SCH (09:31)
[2021-04-26] MEDS: HumuLIN 70/30 (300 UNITS/3 ML VIAL) SC SCH (09:32)
[2021-04-26] MEDS: Ergocalciferol 1.25 MG(50,000 UNITS) CAP PO SCH (12:17)
== END 2021-04-26 12:43 | disposition home or self-care (01) | DRG 870 ==
LOC: ERS 18:38 → EDBD 21:32 → ERHOLD 21:32 → CCU 04-05 06:48 → 2NO 04-11 06:24 → T4-B 04-25 12:29
PROVIDERS: ADMIT Student in an Organized Health Care Education/Training Program; ATTEND Internal Medicine
PROC: 5A1955Z Respiratory Ventilation, Greater than 96 Consecutive Hours (ICD-10-PCS; principal; 2021-04-04)
PROC: 0BH17EZ Insertion of Endotracheal Airway into Trachea, Via Natural or Artificial Opening (ICD-10-PCS; 2021-04-04)
PROC: 0D9670Z Drainage of Stomach with Drainage Device, Via Natural or Artificial Opening (ICD-10-PCS; 2021-04-04)
PROC: 3E033XZ Introduction of Vasopressor into Peripheral Vein, Percutaneous Approach (ICD-10-PCS; 2021-04-04)
PROC: 02H633Z Insertion of Infusion Device into Right Atrium, Percutaneous Approach (ICD-10-PCS; 2021-04-04)
PROC: B24BZZ4 Ultrasonography of Heart with Aorta, Transesophageal (ICD-10-PCS; 2021-04-20)
PROC: 02HV33Z Insertion of Infusion Device into Superior Vena Cava, Percutaneous Approach (ICD-10-PCS; 2021-04-22)
PROC: B548ZZA Ultrasonography of Superior Vena Cava, Guidance (ICD-10-PCS; 2021-04-22)
DX: A41.01 Sepsis due to Methicillin susceptible Staphylococcus aureus (principal); E11.01 Type 2 diabetes mellitus with hyperosmolarity with coma; R65.21 Severe sepsis with septic shock; J96.01 Acute respiratory failure with hypoxia; J15.211 Pneumonia due to Methicillin susceptible Staphylococcus aureus; G92.8 Other toxic encephalopathy; K85.20 Alcohol induced acute pancreatitis without necrosis or infection; R57.1 Hypovolemic shock; D65 Disseminated intravascular coagulation [defibrination syndrome]; N17.9 Acute kidney failure, unspecified; E87.0 Hyperosmolality and hypernatremia; D61.818 Other pancytopenia; E87.1 Hypo-osmolality and hyponatremia; K52.1 Toxic gastroenteritis and colitis; Z20.822 Contact with and (suspected) exposure to COVID-19; F14.10 Cocaine abuse, uncomplicated; F10.10 Alcohol abuse, uncomplicated; E87.6 Hypokalemia; E86.0 Dehydration; E83.51 Hypocalcemia; E83.39 Other disorders of phosphorus metabolism; N30.90 Cystitis, unspecified without hematuria; G93.89 Other specified disorders of brain; E88.09 Other disorders of plasma-protein metabolism, not elsewhere classified; E11.65 Type 2 diabetes mellitus with hyperglycemia; E87.8 Other disorders of electrolyte and fluid balance, not elsewhere classified; G40.909 Epilepsy, unspecified, not intractable, without status epilepticus; D63.8 Anemia in other chronic diseases classified elsewhere; I10 Essential (primary) hypertension; E83.42 Hypomagnesemia; Z78.1 Physical restraint status; T36.95XA Adverse effect of unspecified systemic antibiotic, initial encounter; E11.649 Type 2 diabetes mellitus with hypoglycemia without coma
CPT/HCPCS: 31500; 36415; 36416; 36556; 36569; 36600; 70450; 71045; 71260; 74177; 80048; 80053; 80076; 80202; 80306; 80307; 81003; 81015; 82010; 82040; 82306; 82550; 82728; 82805; 83036; 83540; 83550; 83605; 83690; 83735; 84100; 84145; 84443; 84484; 85025; 85049; 85300; 85362; 85379; 85384; 85610; 85730; 86140; 87040; 87071; 87077; 87086; 87186; 87324; 87449; 93005; 93306; 93312; 94002; 94003; 94760; 95712; 95819; 95957; 96360; 96365; 96366; 96367; 96368; 96375; C1751; C9113; J0690; J0692; J1644; J1650; J1815; J1953; J2001; J2060; J2700; J2704; J3010; J3370; J3411; J3475; J3480; J3490; J7042; J7050; J7070; P9047; Q0162; Q9967; U0002; U0003; U0005